=== PATIENT | male | born 1960 | race Caucasian/White ===

== ENCOUNTER 2016-09-15 20:31 | Observation (INO) | payer OTHER ==
[~2016-09-15] VITALS: Ht 180.3 cm; Wt 80.3 kg
--- NOTE | 2016-09-15 20:51 | PHYS DOC ---
Adult General Chief Complaint Chief Complaint: ABDOMINAL PAIN HPI HPI Patient is a 56 year old M who presents with abdominal pain and shortness of breath prior to arrival. Patient states that for the past 3 days he's had these episodes where he gets intense waves of abdominal pain radiating to his back with increased shortness of breath. 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 Patient is a history of Hodgkin's lymphoma where he is undergoing radiation, chemotherapy and surgery. Patient has had a cardiac workup done with no stents or bypass surgery. Pt had an ablation done 4 months ago for A. fib Patient states he does have a history of kidney stones however he is not having a difficult he urinating and there is been no blood in his urine per the patient. In the emergency room the patient is asymptomatic. Patient denies any fevers or chills. Patient denies any nausea/vomiting/ diarrhea. Patient did state about a week ago he had URI symptoms but was not placed on any antibiotics. Pertinent exam findings: Heart was regular rate and rhythm without any murmurs Lungs were clear to auscultation bilaterally without crackles wheezes or rales Abdomen soft nontender bowel sounds heard all 4 quadrants ED course: Patient was seen and examined upon arrival CBC, CMP, lipase, UA, CT angiogram chest abdomen and pelvis and 1 L normal saline bolus was ordered 2315: Patient was reevaluated and updated on lab work and CT findings and is still complaining of significant amount abdominal pain therefore will admit for intractable abdominal pain 2320: Discussed CC/HP/PMH with Dr. Zurita and recommends admit at [facility] only if the lactic acid and LDH were unremarkable to [place] for surgery consult 0015: Discussed CC/HP/PMH with Dr. Zurita and lactic acid and LDH results and even though the LDH is slightly elevated he is comfortable keep the patient at [facility] Pertinent findings: 2048: EKG shows normal sinus rhythm rate of 81 no STEMI Troponin negative LDH 269, lactic acid negative at 1.2 CT scan shows no acute abnormality MDM: After reviewing the chart, CC/HPI/PMH, physical exam, [lab results], [ radiological results], I do not believe the patient has a intra-abdominal emergency warranting emergent surgery. I do not believe the patient has an acute ischemic bowel. On reexamination the patient is having persistent abdominal pain therefore will admit for further evaluation and management. After discussing the case with the hospitalist the patient will remain at [facility] and not transferred to [place] for an emergent surgery consultation. Review of Systems Review of Systems GEN: Denies fevers, chills, sweats HEENT: Denies blurred vision, sore throat CV: Denies chest pain RESP: Shortness of breath GI: Abdominal pain NEURO: Denies confusion, dizziness MSK: Denies weakness, joint pain/swelling Current Medications Current Medications Current Medications Medications (Trade) Dose Ordered Sig/Manish Start Time Stop Time Status Last Admin Dose Admin Sodium Chloride 1,000 ml @ 1,000 mls/hr 1X ONCE 09/15/16 20:45 09/15/16 21:44 UNV Physical Exam Physical Exam GEN.: No apparent distress. Alert and oriented. HEENT: Head is normocephalic, atraumatic NECK: Supple. LUNGS: CTAB. HEART: RRR, S1, S2 present. Peripheral pulses intact ABDOMEN: Soft, nontender. Positive bowel sounds. EXTREMITIES: Without any cyanosis. NEUROLOGIC: Normal speech, normal tone PSYCHIATRIC: Normal affect, normal mood. SKIN: No ulcerations Current Patient Data Lab Results Laboratory Tests Test 09/15/16 20:55 09/15/16 21:10 Urine Collection Type Unknown Urine Color Straw Urine Clarity Clear Urine pH 5.5 Urine Specific [place] <=1.005 Urine Protein Neg Urine Glucose (UA) Neg mg/dL Urine Ketones (Stick) Neg mg/dL Urine Blood Neg Urine Nitrite Neg Urine Bilirubin Neg Urine Urobilinogen Dipstick 0.2 mg/dL Urine Leukocyte Esterase Neg Urine RBC 0 /HPF Urine WBC 1-4 /HPF Urine Squamous Epithelial Cells Few /LPF Urine Bacteria 0 /HPF White Blood Count 9.9 x10^3/uL Red Blood Count 4.06 x10^6/uL Hemoglobin 11.9 g/dL Hematocrit 35.8 % Mean Corpuscular Volume 88 fL Mean Corpuscular Hemoglobin 29 pg Mean Corpuscular Hemoglobin Concent 33 g/dL Red Cell Distribution Width 16.2 % Platelet Count 308 x10^3/uL Neutrophils (%) (Auto) 54 % Lymphocytes (%) (Auto) 28 % Monocytes (%) (Auto) 13 % Eosinophils (%) (Auto) 4 % Basophils (%) (Auto) 1 % Neutrophils # (Auto) 5.4 x10^3uL Lymphocytes # (Auto) 2.8 x10^3/uL Monocytes # (Auto) 1.3 x10^3/uL Eosinophils # (Auto) 0.4 x10^3/uL Basophils # (Auto) 0.1 x10^3/uL Sodium Level 140 mmol/L Potassium Level 3.7 mmol/L Chloride Level 103 mmol/L Carbon Dioxide Level 29 mmol/L Anion Gap 8 Blood Urea Nitrogen 10 mg/dL Creatinine 0.8 mg/dL Estimated GFR (Cockcroft-Gault) 100.4 BUN/Creatinine Ratio 13 Glucose Level 92 mg/dL Lactic Acid Level 1.2 mmol/L Calcium Level 9.0 mg/dL Total Bilirubin 0.5 mg/dL Aspartate Amino Transf (AST/SGOT) 31 U/L Alanine Aminotransferase (ALT/SGPT) 36 U/L Alkaline Phosphatase 145 U/L Lactate Dehydrogenase 269 U/L Troponin I Quantitative < 0.017 ng/mL Total Protein 7.3 g/dL Albumin 3.5 g/dL Albumin/Globulin Ratio 0.9 Lipase 89 U/L Current Medications Medications (Trade) Dose Ordered Sig/Manish Route PRN Reason Start Time Stop Time Status Last Admin Dose Admin Sodium Chloride 1,000 ml @ 1,000 mls/hr 1X ONCE IV 09/15/16 21:00 09/15/16 21:59 DC 09/15/16 21:30 Iohexol (Omnipaque 300 Mg/ml) 75 ml 1X ONCE IV 09/15/16 21:00 09/15/16 21:01 DC 09/15/16 21:08 Info (Do NOT chart on this entry -- for MONITORING) 1 each PRN DAILY PRN MC SEE COMMENTS 09/15/16 21:00 09/17/16 20:59 EKG EKG 2049: EKG shows normal sinus rhythm rate of 81 no STEMI[] Radiology/Procedures Radiology/Procedures CT angio chest abdomen pelvis: COMPARISON: No previous study at [facility]. CHEST CTA: No pulmonary embolism is evident. No thoracic aortic dissection or focal aneurysmal dilatation is seen. The heart size is within normal limits. No pericardial effusion is seen. No enlarged thoracic lymphadenopathy is seen. Enlarged left lobe of the thyroid gland is seen. Mild biapical pleural thickening is seen. No lung consolidation or lung mass is seen. There is a small AVM of the superior segment of the left lower lobe. No pleural effusion or pneumothorax is seen. The proximal bronchial tree is patent. There is a calcified extradural mass of the upper thoracic spine posterior and right side with a thoracic spinal canal meningioma. This measures 15 mm. No osteolytic process is seen. IMPRESSION: No pulmonary embolism. Enlarged left lobe of the thyroid gland. Recommend OUTPATIENT thyroid sonography for further evaluation. Small AVM of the superior segment of the left lower lobe. No lung mass or lung consolidation is seen. 15 mm thoracic spinal canal meningioma of the upper posterior right side of the thoracic spinal canal. ABDOMEN AND PELVIS CTA: The spleen is surgically absent. The liver is unremarkable. The gallbladder is small and contracted. No extra hepatic biliary ductal dilatation is seen. No adrenal mass is evident. Multiple bilateral renal cysts are seen. There is focal scarring of the lower aspect of the right kidney. Nonobstructing stone of the lower pole of the left kidney is seen. There is poor enhancement of the upper pole of the left kidney. 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 Calcified atheromatous disease of the main renal arteries is seen on both sides. No hydronephrosis or hydroureter is seen on either side. No focal aneurysmal dilatation of the abdominal aorta is seen. No enlarged abdominal or pelvic lymphadenopathy is seen. There is circumferential wall thickening of the urinary bladder which is mild. Prostate gland mildly indents the floor of the urinary bladder. No obstructive bowel pattern is seen. A left inguinal hernia seen containing fat. No free intraperitoneal air or free fluid or mesenteric inflammatory change is seen. No osteolytic process is seen. IMPRESSION: The gallbladder is small and contracted which may be due to recent meal. No extra hepatic biliary ductal dilatation is seen. Multiple bilateral renal cysts. Nonobstructing stone of the lower pole of the left kidney. 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 There is focal scarring of the lateral aspect of the lower pole of the right kidney. This could be due to an old renal infarct or chronic pyelonephritis. Mild wall thickening of the urinary bladder which may be due to cystitis or muscle hypertrophy secondary to chronic bladder neck obstruction. Electronically signed by: Dwain Lanza MD (09/15/2016 9:59 PM)[] Course & Med Decision Making Course & Med Decision Making Pertinent Labs and Imaging studies reviewed. (See chart for details) [] Dragon Disclaimer Dragon Disclaimer This chart was dictated in whole or in part using Voice Recognition software in a busy, high-work load, and often noisy Emergency Department environment. It may contain unintended and wholly unrecognized errors or omissions. Departure Departure: Impression: Primary Impression: Intractable abdominal pain Disposition: ADMITTED INPATIENT Admitting Physician: Murali Zurita Condition: STABLE NATALIA HENSON DO Sep 15, 2016 20:51
[2016-09-15] MEDS ORDERED: IOHEXOL 300 MG/ML 75 ML VIAL. IV ONE (21:00)
[2016-09-15] MEDS ORDERED: CONTRAST GIVEN MC PRN (21:00)
[2016-09-15] MEDS ORDERED: IV NORMAL SALINE 1,000ML 1,000 ML IV ONE (21:00)
[2016-09-15 21:23] LABS: BASO # 0.1 x10^3/uL (0.0-0.2); BASO % 1 % (0-3); EOS # 0.4 x10^3/uL (0.0-0.7); EOS % 4 % (0-3); HEMATOCRIT 35.8 % (39.0-53.0); HEMOGLOBIN 11.9 g/dL (13.0-17.5); LYMPH # 2.8 x10^3/uL (1.0-4.8); LYMPH % 28 % (24-48); MEAN CORPUSCULAR HEMOGLOBIN 29 pg (25-35); MEAN CORPUSCULAR HGB CONC 33 g/dL (31-37); MEAN CORPUSCULAR VOLUME 88 fL (79-100); MONO # 1.3 x10^3/uL (0.0-1.1); MONO % 13 % (0-9); NEUT # 5.4 x10^3uL (1.8-7.7); NEUT % 54 % (31-73); PLATELET COUNT 308 x10^3/uL (140-400); RED BLOOD COUNT 4.06 x10^6/uL (4.30-5.70); RED CELL DISTRIBUTION WIDTH 16.2 % (11.5-14.5); WHITE BLOOD COUNT 9.9 x10^3/uL (4.0-11.0)
[2016-09-15 21:34] LABS: ALBUMIN 3.5 g/dL (3.4-5.0); ALBUMIN/GLOBULIN RATIO 0.9 (1.0-1.7); CREATININE 0.8 mg/dL (0.7-1.3); GFR 100.4; POTASSIUM 3.7 mmol/L (3.5-5.1); TOTAL BILIRUBIN 0.5 mg/dL (0.2-1.0); TOTAL PROTEIN 7.3 g/dL (6.4-8.2)
[2016-09-15 21:54] LABS: CLARITY,URINE CLEAR; COLOR,URINE STRAW
[2016-09-15 21:55] LABS: BACTERIA,URINE 0 /HPF (0-FEW); BILIRUBIN,URINE NEG (NEG); GLUCOSE,URINE NEG (NEG); NITRITE,URINE NEG (NEG); RBC,URINE 0 /HPF (0-2); SQUAMOUS EPITHELIAL CELL,UR FEW /LPF; UROBILINOGEN,URINE 0.2 mg/dL (0.2 mg/dL)
--- NOTE | 2016-09-15 22:02 | RAD ---
CTA of the chest and abdomen and pelvis with and without contrast HISTORY: Upper left abdominal pain and left flank pain with shortness of air today. History of spontaneous pneumothorax. History of Hodgkin's disease and kidney stones. Low back pain. TECHNIQUE: Noncontrast axial localizer was performed. After IV infusion of 75 cc of Omnipaque 300, helical CT scanning of the chest and abdomen and pelvis was performed. Multiplanar 2-D MIP reconstructions of the chest and abdomen pelvis were generated. No GI contrast was administered. This may decrease the sensitivity to detect GI tract pathology. PQRS compliance Statement One or more of the following individualized dose reduction techniques were utilized for this study: 1. Automated exposure control 2. Adjustment of the mA and/or kV according to patient size 3. Use of iterative reconstruction technique COMPARISON: No previous study at [facility]. CHEST CTA: No pulmonary embolism is evident. No thoracic aortic dissection or focal aneurysmal dilatation is seen. The heart size is within normal limits. No pericardial effusion is seen. No enlarged thoracic lymphadenopathy is seen. Enlarged left lobe of the thyroid gland is seen. Mild biapical pleural thickening is seen. No lung consolidation or lung mass is seen. There is a small AVM of the superior segment of the left lower lobe. No pleural effusion or pneumothorax is seen. The proximal bronchial tree is patent. There is a calcified extradural mass of the upper thoracic spine posterior and right side with a thoracic spinal canal meningioma. This measures 15 mm. No osteolytic process is seen. IMPRESSION: No pulmonary embolism. Enlarged left lobe of the thyroid gland. Recommend OUTPATIENT thyroid sonography for further evaluation. Small AVM of the superior segment of the left lower lobe. No lung mass or lung consolidation is seen. 15 mm thoracic spinal canal meningioma of the upper posterior right side of the thoracic spinal canal. ABDOMEN AND PELVIS CTA: The spleen is surgically absent. The liver is unremarkable. The gallbladder is small and contracted. No extra hepatic biliary ductal dilatation is seen. No adrenal mass is evident. Multiple bilateral renal cysts are seen. There is focal scarring of the lower aspect of the right kidney. Nonobstructing stone of the lower pole of the left kidney is seen. There is poor enhancement of the upper pole of the left kidney. 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 Calcified atheromatous disease of the main renal arteries is seen on both sides. No hydronephrosis or hydroureter is seen on either side. No focal aneurysmal dilatation of the abdominal aorta is seen. No enlarged abdominal or pelvic lymphadenopathy is seen. There is circumferential wall thickening of the urinary bladder which is mild. Prostate gland mildly indents the floor of the urinary bladder. No obstructive bowel pattern is seen. A left inguinal hernia seen containing fat. No free intraperitoneal air or free fluid or mesenteric inflammatory change is seen. No osteolytic process is seen. IMPRESSION: The gallbladder is small and contracted which may be due to recent meal. No extra hepatic biliary ductal dilatation is seen. Multiple bilateral renal cysts. Nonobstructing stone of the lower pole of the left kidney. 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 There is focal scarring of the lateral aspect of the lower pole of the right kidney. This could be due to an old renal infarct or chronic pyelonephritis. Mild wall thickening of the urinary bladder which may be due to cystitis or muscle hypertrophy secondary to chronic bladder neck obstruction. Electronically signed by: Dwain Lanza MD (09/15/2016 9:59 PM)
[2016-09-16] MEDS ORDERED: IV NORMAL SALINE 1,000ML 1,000 ML IV SCH (00:21)
[2016-09-16] MEDS ORDERED: MORPHINE SULFATE 4 MG/ML DISP.SYRIN. IV PRN (00:30)
[2016-09-16] MEDS ORDERED: ONDANSETRON PF 4 MG/2 ML VIAL. IV PRN (00:30)
[2016-09-16] MEDS: fentaNYL PF 100 MCG/2 ML VIAL IV PRN ×2 (00:50→03:54)
[2016-09-16 01:00] VITALS: BP 178/87
[2016-09-16] MEDS ORDERED: METO100T2 PO (01:50)
[2016-09-16] MEDS ORDERED: LEVO125T5 PO (01:50)
[2016-09-16] MEDS ORDERED: LISI-334 PO (01:50)
--- NOTE | 2016-09-16 01:59 | NUR ---
The patient, JONATHON BOGGS, 56 y/o, M admitted by RICKY MEANS MD, was given written information regarding hospital policies, unit procedures and contact persons. Valuables were checked and left with patient. Patient states he has had this pain for about a week and it has taken his breath away. Will continue to monitor for any changes.
--- NOTE | 2016-09-16 03:17 | ACF ---
Admission Criteria Forms ABDOMINAL PAIN Clinical Indications for Admission to Inpatient Care (Place 'X' for any and all applicable criteria): Admission is indicated for ANY ONE of the following(1)(2)(3)(4)(5): [X]I. Inpatient admission required rather than observation care (Also use Abdominal Pain: Observation Care, as appropriate) because of ANY ONE of the following: [ ]a) Severe pain requiring acute inpatient management [ ]b) Identification of etiology/finding that requires inpatient care (eg, aortic dissection, free air) [ ]c) Absent bowel sounds with complete ileus(6) [ ]d) Suspected toxic megacolon [ ]e) Severe electrolyte abnormalities requiring inpatient care [ ]f) High fever or infection requiring inpatient admission as indicated by ANY ONE of following(7)(8): [ ] i) Appropriate outpatient or observational care antimicrobial treatment unavailable, not effective, or not feasible [ ] ii) Documented bacteremia [ ] iii) Temperature > 104.9 degrees F (oral) [ ] iv) T >103.1 F (oral) or < 96.8 F(rectal) that does not respond to all emergency treatment measures [ ]g) Signs of intestinal obstruction [B] [ ]h) Hemodynamic instability [ ]i) IV fluid to replace significant ongoing losses (greater than 3 L/m2 per day) (12)(13) [ ]j) Percutaneous or open drainage (eg, abscess, biliary tract ) procedures [ ]k) Parenteral nutrition regimen that must be implemented on inpatient basis [X]l) Other condition,treatment or monitoring requiring inpatient admission. [ ]II. Peritoneal signs present [ ]III. Surgery needed that cannot be performed on an ambulatory basis. [ ]IV. Evaluation requires patient to not eat or drink for extended period ( eg, more than 24 hours). [ ]V. Contraindications and/or Inappropriate clinical situations for Observational Care in patients with abdominal pain, when ANY ONE of the following is required: [ ]a) Thorough evaluation is required to prevent catastrophic events due to delays in diagnosing (e.g.Mesenteric ischemia) 1,3 [ ]b) Patient with severe pathology or with chronic symptoms unlikely to improve in the ED stay (3) [ ]. General contraindications and/or Inappropriate clinical situations for Observational Care in patients with abdominal pain, when ANY ONE of the following is required: [ ]a) Prediction of prolongation of LOS based on ANY ONE of the following may be considered as a contraindication for observational care 2, 3, 4, 5, 6, 7, 8, 9, 10, 11 [ ]i) Age > 65 yrs. [ ]ii) Patient arriving by ambulance [ ]iii) Patient with high acuity [ ]iv) Patient requiring vital sign monitoring [ ]v) Patient on IV medication [ ]b) Systolic blood pressures 180mmHg 3,12 [ ]c) Patient with altered mental status including delirium and other alteration of consciousness, (3) [ ]d) Patient whose discharge disposition will be to a intermediate home or rehabilitation home should not be managed in Emergency Department Observation Unit. CMS rule requires 3 days hospital stay before such placement.3,13 [ ]e) Patient with failure to thrive due to broad array of etiologies 3,16,17 [ ]f) Inability to ambulate 3,14 Extended stay beyond goal length of stay may be needed for(2)(3): [ ]a) Persistent abdominal pain with suspected intra-abdominal process [ ]b) Diagnosed condition requiring continued stay (e.g., pancreatitis, complicated diverticulitis) [ ]c) Surgery (e.g., colectomy) The original [facility] content created by [employer] has been revised. The portions of the content which have been revised are identified through the use of italic text or in bold, and [facility] has neither reviewed nor approved the modified material.All other unmodified content is copyright [employer]. Please see references footnoted in the original [facility] edition 2016 Admission Criteria Met?: Yes MANAN WEINBERG Sep 16, 2016 03:17
[2016-09-16 05:28] VITALS: BP 160/84
[2016-09-16] MEDS ORDERED: LEVOTHYROXINE 125 MCG TABLET PO SCH (06:00)
--- NOTE | 2016-09-16 07:46 | NUR ---
During morning rounds, the patient stated that he could not stay until the doctor arrived to see him and that he had to leave as soon as possible. When asked by this nurse if there was anyone who could possibly go check on his dog and patient stated that his dog was at home locked up and there was no one to go let the dog out. The patient stated that both of his children were out of town and he had no one to check on the dog. The patient stated that he wished he could stay but that he felt better and was currently not in any pain. This nurse instructed the patient to come back to the ED if he started to feel bad again and encouraged the patient to begin reintroducing fluids slowly, starting with clear liquids and advancing as tolerated. Dr. Zurita notified of patient's wishes to leave this morning without being seen. AMA form signed by patient and IV discontinued. Patient left the unit via ambulation.
[2016-09-16] MEDS ORDERED: LISINOPRIL 20 MG TABLET PO SCH (09:00)
[2016-09-16] MEDS ORDERED: METOPROLOL TART IMMED RELEASE 50 MG TABLET PO SCH (09:00)
--- NOTE | 2016-09-16 19:06 | EKG ---
[address] [address] Test Date: 2016-09-15 Test Time: 20:51:29 Pat Name: JONATHON BOGGS Department: Room: 113 A Gender: M Vp Purchasing: LIDA : 1960 Requested By: NATALIA HENSNO Order Number: [id number] Reading MD: Jori Wood Measurements Intervals Robertson Rate: 81 P: 64 WI: 138 QRS: -43 QRSD: 106 T: 69 QT: 374 QTc: 435 Interpretive Statements SINUS RHYTHM ABNORMAL LEFT AXIS DEVIATION LEFT ANTERIOR FASCICULAR BLOCK LEFT VENTRICULAR HYPERTROPHY Electronically Signed On 09-19-2016 8:29:49 CDT by Jori Wood
== END 2016-09-16 07:40 | disposition left against medical advice (07) ==
LOC: ER 20:31 → 1 SOUTH 09-16 00:23
PROVIDERS: ADMIT Internal Medicine; ATTEND Internal Medicine
DX: R10.9 Unspecified abdominal pain (principal); I48.91 Unspecified atrial fibrillation; N28.1 Cyst of kidney, acquired; K40.90 Unilateral inguinal hernia, without obstruction or gangrene, not specified as recurrent; N32.0 Bladder-neck obstruction; D32.9 Benign neoplasm of meninges, unspecified; Z87.442 Personal history of urinary calculi; Z85.71 Personal history of Hodgkin lymphoma
CPT/HCPCS: 36415; 71275; 74174; 80053; 81001; 83605; 83615; 83690; 84484; 85027; 93005; 96361; 96374; 96375; 96376; 99285; G0378; J2405; J3010; Q9967; G0379; J7030

== ENCOUNTER 2017-10-02 09:52 | Emergency (ER) | payer OTHER ==
[~2017-10-02] VITALS: Ht 177.8 cm; Wt 75.5 kg
[~2017-10-02 09:52] MED LIST: LEVO125T5 PO; LISI-334 PO; METO100T7 PO
[2017-10-02 10:13] VITALS: BP 144/98
[2017-10-02] MEDS ORDERED: ALPR0.25 PO (10:35)
--- NOTE | 2017-10-02 10:36 | PHYS DOC ---
Past History Past Medical History: A-Fib, Anxiety, Hypertension, Hypothyroid, Kidney Stones , Other Past Surgical History: Other Smoking: Non-smoker Alcohol Use: Occasionally Drug Use: None Adult General Chief Complaint Chief Complaint: ANXIETY/PANIC ATTACK [facility] HPI 57-year-old male patient states he lost his dog one week ago after having his dog for 12 years and since then he has had anxiety and lack of sleep and appetite and lost about 9 pounds. Patient states he had a panic attack today at work shaking all over and palpitation that resolved spontaneously. Patient denies suicidal and homicidal ideation, hallucination, substance abuse, chest pain and shortness of breath. Patient states that the same problem 10 years ago after he lost his father and treated with a short course of Ativan with improvement of his condition. Review of Systems Review of Systems Constitutional: Denies fever or chills , reports anorexia[] Eyes: Denies change in visual acuity, redness, or eye pain [] HENT: Denies nasal congestion or sore throat [] Respiratory: Denies cough or shortness of breath [] Cardiovascular: No additional information not addressed in HPI [] GI: Denies abdominal pain, nausea, vomiting, bloody stools or diarrhea [] : Denies dysuria or hematuria [] Musculoskeletal: Denies back pain or joint pain [] Integument: Denies rash or skin lesions [] Neurologic: Denies headache, focal weakness or sensory changes [] Endocrine: Denies polyuria or polydipsia [] All other systems were reviewed and found to be within normal limits, except as documented in this note. Allergies Allergies Allergies Coded Allergies Type Severity Reaction Last Updated Verified morphine Allergy Intermediate 09/16/16 Yes Physical Exam Physical Exam Constitutional: Well developed, well nourished, mild distress, non-toxic appearance. [] HENT: Normocephalic, atraumatic, oropharynx moist Eyes: PERRLA, EOMI, conjunctiva normal, no discharge. [] Neck: Normal range of motion, no tenderness, supple, no stridor. [] Cardiovascular:Heart rate regular rhythm, no murmur [] Lungs & Thorax: Bilateral breath sounds clear to auscultation [] Extremities: No tenderness, no cyanosis, no clubbing, ROM intact, no edema. [] Neurologic: Alert and oriented X 3, normal motor function, normal sensory function, no focal deficits noted. [] Psychologic: Affect anxious, judgement normal, mood normal. [] Current Patient Data Vital Signs Vital Signs Date Time Temp Pulse Resp B/P (MAP) Pulse Ox O2 Delivery O2 Flow Rate FiO2 10/02/17 10:13 98.2 105 18 98 Room Air EKG EKG [] Radiology/Procedures Radiology/Procedures [] Course & Med Decision Making Course & Med Decision Making Evaluation of patient in ER showed 57-year-old male patient presented to ER because of anxiety and panic attack after loss of his dog. Patient had unremarkable physical exam and I suicidal and homicidal ideation and hallucination. Plan to discharge patient home with prescription of short course of Xanax. Dragon Disclaimer Dragon Disclaimer This electronic medical record was generated, in whole or in part, using a voice recognition dictation system. Departure Departure: Impression: Primary Impression: Panic attack Disposition: HOME, SELF-CARE (At 1033) Condition: STABLE Referrals: PCP,NO (PCP) Patient Instructions: Anxiety and Panic Attacks Additional Instructions: Drink plenty of liquids Follow-up with your primary care physician in 3-5 days Return to ER if not getting better Scripts Alprazolam (XANAX) 0.25 Mg Tablet 0.25 MG PO PRN Q6HRS PRN for ANXIETY / AGITATION, #16 TAB 0 Refills Prov: AYSHA SOLIMAN MD 10/02/17 AYSHA SOLIMAN MD Oct 02, 2017 10:36
== END 2017-10-02 10:44 | disposition home or self-care (01) ==
LOC: ER 09:52
DX: F41.0 Panic disorder [episodic paroxysmal anxiety] (principal); E03.9 Hypothyroidism, unspecified; I10 Essential (primary) hypertension; I48.91 Unspecified atrial fibrillation; Z87.442 Personal history of urinary calculi; Z88.5 Allergy status to narcotic agent
CPT/HCPCS: 99284

== ENCOUNTER 2018-09-04 10:58 | Emergency (ER) | payer OTHER ==
[~2018-09-04] VITALS: Ht 177.8 cm; Wt 75.5 kg
[~2018-09-04 10:58] MED LIST changes: +ALPR0.25 PO
[2018-09-04 11:29] LABS: BASO # 0.1 x10^3/uL (0.0-0.2); BASO % 1 % (0-3); EOS # 0.2 x10^3/uL (0.0-0.7); EOS % 4 % (0-3); HEMATOCRIT 41.6 % (39.0-53.0); HEMOGLOBIN 14.5 g/dL (13.0-17.5); LYMPH % 31 % (24-48); MEAN CORPUSCULAR HEMOGLOBIN 32 pg (25-35); MEAN CORPUSCULAR HGB CONC 35 g/dL (31-37); MEAN CORPUSCULAR VOLUME 93 fL (79-100); MONO # 0.9 x10^3/uL (0.0-1.1); MONO % 14 % (0-9); NEUT # 3.3 x10^3uL (1.8-7.7); NEUT % 51 % (31-73); PLATELET COUNT 352 x10^3/uL (140-400); RED CELL DISTRIBUTION WIDTH 14.3 % (11.5-14.5); WHITE BLOOD COUNT 6.6 x10^3/uL (4.0-11.0)
--- NOTE | 2018-09-04 11:40 | RAD ---
Chest, PA and Lateral: Technique: PA and lateral views of the chest were obtained. History: Chest pain, Hodgkin's lymphoma. Comparison: None. Findings: The heart and pulmonary vasculature appear within normal limits. The lungs are clear. The pleural margins are clear. Calcified lymph nodes identified in the mediastinum and bilateral hilar region. Mild degenerative changes thoracic spine. Impression: 1. Calcified lymph nodes in the mediastinal and bilateral hilar region. 2. Lungs are clear. Electronically signed by: Vidal Barry MD (09/04/2018 11:38 AM) [place] [id number]
[2018-09-04 11:44] LABS: ALBUMIN 3.7 g/dL (3.4-5.0); ALBUMIN/GLOBULIN RATIO 0.9 (1.0-1.7); CALCIUM 9.4 mg/dL (8.5-10.1); CREATININE 0.9 mg/dL (0.7-1.3); POTASSIUM 3.9 mmol/L (3.5-5.1); TOTAL BILIRUBIN 0.6 mg/dL (0.2-1.0); TOTAL PROTEIN 7.7 g/dL (6.4-8.2)
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
[2018-09-04 12:18] VITALS: BP 144/81
--- NOTE | 2018-09-04 16:10 | EKG ---
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
== END 2018-09-04 12:15 | disposition home or self-care (01) ==
LOC: ER 10:58
DX: R00.2 Palpitations (principal); I48.91 Unspecified atrial fibrillation; F41.9 Anxiety disorder, unspecified; I10 Essential (primary) hypertension; E03.9 Hypothyroidism, unspecified; Z87.442 Personal history of urinary calculi; Z85.71 Personal history of Hodgkin lymphoma; Z88.5 Allergy status to narcotic agent
CPT/HCPCS: 36415; 71046; 80053; 84484; 85025; 93005; 99285

== ENCOUNTER 2018-11-02 12:35 | Emergency (ER) | payer OTHER ==
[~2018-11-02] VITALS: Ht 180.3 cm; Wt 75.3 kg
[2018-11-02] MEDS ORDERED: HYDROmorphone PF 1 MG/ML DISP.SYRIN IV ONE (13:15)
[2018-11-02] MEDS ORDERED: ONDANSETRON PF 4 MG/2 ML VIAL. IV ONE (13:15)
--- NOTE | 2018-11-02 13:15 | PHYS DOC ---
Past History Past Medical History: A-Fib, Anxiety, Hypertension, Hypothyroid, Kidney Stones, Other Past Surgical History: Other Smoking: Non-smoker Alcohol Use: Occasionally Drug Use: None Adult General Chief Complaint Chief Complaint: LOWER EXT PAIN HPI HPI 58-year-old male presents with left lower extremity pain. The patient began have intense pain in his left lower leg on the medial side just below the knee. This started today and has increased during the day. He came here from work. He denies any trauma. He is concerned about cellulitis because he had a fever of 101. He took Tylenol prior to arrival. His temperature is normal in the ED. He has tenderness over some of the skin of the lower extremity. He thinks it is mildly erythematous but not distinctly erythematous or hot. The patient normally wears over the calf socks. He has some venous insufficiency at baseline. He has not had a DVT in the past. He denies shortness of breath. He does not recall a cut or injury to the leg, but did have a bug bite on his foot 3 days ago. Review of Systems Review of Systems Constitutional: Fever[] Eyes: Denies change in visual acuity, redness, or eye pain [] HENT: Denies nasal congestion or sore throat [] Respiratory: Denies cough or shortness of breath [] Cardiovascular: No additional information not addressed in HPI [] GI: Denies abdominal pain, nausea, vomiting, bloody stools or diarrhea [] : Denies dysuria or hematuria [] Musculoskeletal: Left lower leg pain[] Integument: Rash left lower leg[] Neurologic: Denies headache, focal weakness or sensory changes [] Endocrine: Denies polyuria or polydipsia [] All other systems were reviewed and found to be within normal limits, except as documented in this note. Current Medications Current Medications Current Medications Medications (Trade) Dose Ordered Sig/Manish Start Time Stop Time Status Last Admin Dose Admin Hydromorphone HCl (Dilaudid) 1 mg 1X ONCE 11/02/18 13:15 11/02/18 13:16 Ondansetron HCl (Zofran) 4 mg 1X ONCE 11/02/18 13:15 11/02/18 13:16 Allergies Allergies Allergies Coded Allergies Type Severity Reaction Last Updated Verified morphine Allergy Intermediate 09/16/16 Yes Physical Exam Physical Exam Constitutional: Well developed, well nourished, no acute distress, non-toxic appearance. [] HENT: Normocephalic, atraumatic, bilateral external ears normal, oropharynx moist, no oral exudates, nose normal. [] Eyes: PERRLA, EOMI, conjunctiva normal, no discharge. [] Neck: Normal range of motion, no tenderness, supple, no stridor. [] Cardiovascular:Heart rate regular rhythm, no murmur [] Lungs & Thorax: Bilateral breath sounds clear to auscultation [] Abdomen: Bowel sounds normal, soft, no tenderness, no masses, no pulsatile masses. [] Skin: Tenderness and mild erythema over a 5 x 5 cm area of the left lower extremity skin medial side, just below the knee.[] Back: No tenderness, no CVA tenderness. [] Extremities: No tenderness, no cyanosis, no clubbing, ROM intact. Left calf diameters greater than right.[] Neurologic: Alert and oriented X 3, normal motor function, normal sensory function, no focal deficits noted. [] Psychologic: Affect normal, judgement normal, mood normal. [] EKG EKG [] Radiology/Procedures Radiology/Procedures [] Impressions: Left lower extremity venous ultrasound, : History: Left leg pain and swelling Duplex evaluation including grayscale, color flow and spectral Doppler analysis was performed. The femoral and popliteal veins show no filling defects to suggest DVT. The visualized calf veins are unremarkable. IMPRESSION: There is no sonographic evidence of deep vein thrombosis in the left lower extremity Electronically signed by: Martina Larsen MD (11/02/2018 2:54 PM) [facility] DICTATED AND SIGNED BY: MARTINA LARSEN MD DATE: 11/02/18 8065 CC: JAYNA BOSWELL DO; PCP,NO ~ Course & Med Decision Making Course & Med Decision Making Pertinent Labs and Imaging studies reviewed. (See chart for details) The patient's labs are unremarkable. He has not had a fever in the ED. His ultrasound is negative for DVT. I will treat him for cellulitis. We will give 1 g Rocephin in the ED. I will discharge him with Keflex. He is stable for discharge at this time. [] Dragon Disclaimer Dragon Disclaimer This electronic medical record was generated, in whole or in part, using a voice recognition dictation system. Departure Departure: Impression: Primary Impression: Cellulitis of left lower extremity Disposition: HOME, SELF-CARE Condition: STABLE Referrals: PCP,NO (PCP) Patient Instructions: Cellulitis, [id number] Scripts Hydrocodone Bit/Acetaminophen ([place] 5-325 TABLET) 1 Each Tablet 1 TAB PO PRN Q6HRS PRN for PAIN, #10 TAB 0 Refills Prov: JAYNA BOSWELL DO 11/02/18 Clonidine Hcl (CLONIDINE HCL) 0.2 Mg Tablet 1 TAB PO TID for hypertension for 30 Days, #90 TAB 0 Refills Prov: JAYNA BOSWELL DO 11/02/18 Cephalexin (KEFLEX) 500 Mg Capsule 1 CAP PO TID for cellulitis for 7 Days, #21 CAP Prov: JAYNA BOSWELL DO 11/02/18 JAYNA BOSWELL DO Nov 02, 2018 13:15
[2018-11-02] MEDS ORDERED: IV NORMAL SALINE 1,000ML 1,000 ML IV ONE (13:45)
[2018-11-02 14:21] LABS: BASO % 0 % (0-3); EOS % 0 % (0-3); HEMATOCRIT 40.7 % (39.0-53.0); HEMOGLOBIN 13.6 g/dL (13.0-17.5); LYMPH # 1.2 x10^3/uL (1.0-4.8); LYMPH % 13 % (24-48); MEAN CORPUSCULAR HEMOGLOBIN 33 pg (25-35); MEAN CORPUSCULAR HGB CONC 33 g/dL (31-37); MEAN CORPUSCULAR VOLUME 97 fL (79-100); MONO # 0.8 x10^3/uL (0.0-1.1); MONO % 9 % (0-9); NEUT # 7.1 x10^3uL (1.8-7.7); NEUT % 78 % (31-73); PLATELET COUNT 301 x10^3/uL (140-400); RED BLOOD COUNT 4.19 x10^6/uL (4.30-5.70); RED CELL DISTRIBUTION WIDTH 14.2 % (11.5-14.5); WHITE BLOOD COUNT 9.1 x10^3/uL (4.0-11.0)
[2018-11-02 14:32] LABS: ALBUMIN 3.5 g/dL (3.4-5.0); ALBUMIN/GLOBULIN RATIO 0.9 (1.0-1.7); CALCIUM 9.1 mg/dL (8.5-10.1); CREATININE 0.9 mg/dL (0.7-1.3); POTASSIUM 4.3 mmol/L (3.5-5.1); TOTAL BILIRUBIN 0.7 mg/dL (0.2-1.0); TOTAL PROTEIN 7.2 g/dL (6.4-8.2)
--- NOTE | 2018-11-02 14:57 | RAD ---
Left lower extremity venous ultrasound, : History: Left leg pain and swelling Duplex evaluation including grayscale, color flow and spectral Doppler analysis was performed. The femoral and popliteal veins show no filling defects to suggest DVT. The visualized calf veins are unremarkable. IMPRESSION: There is no sonographic evidence of deep vein thrombosis in the left lower extremity Electronically signed by: Magan Estrada MD (11/02/2018 2:54 PM) [facility]
[2018-11-02] MEDS ORDERED: CEPH-264 PO (15:15)
[2018-11-02] MEDS ORDERED: CLON-276 PO (15:21)
[2018-11-02] MEDS ORDERED: HYDR-3165 PO (15:21)
[2018-11-02] MEDS ORDERED: IV NORMAL SALINE 50ML 50 ML ONE (15:31)
[2018-11-02] MEDS ORDERED: cefTRIAXone SODIUM 1 GM VIAL ONE (15:31)
[2018-11-02 16:35] VITALS: BP 164/88
== END 2018-11-02 16:35 | disposition home or self-care (01) ==
LOC: ER 12:35
DX: L03.116 Cellulitis of left lower limb (principal); I48.91 Unspecified atrial fibrillation; I10 Essential (primary) hypertension; E03.9 Hypothyroidism, unspecified; Z87.442 Personal history of urinary calculi; Z88.5 Allergy status to narcotic agent
CPT/HCPCS: 36415; 80053; 85025; 87040; 93971; 96365; 96375; 99285; J0696; J1170; J2405; J7030

== ENCOUNTER 2018-11-04 01:14 | Emergency (ER) | payer OTHER ==
[~2018-11-04] VITALS: Ht 180.3 cm; Wt 75.5 kg
[~2018-11-04 01:14] MED LIST changes: +CEPH-264 PO; +CLON-276 PO; +HYDR-3165 PO
--- NOTE | 2018-11-04 01:17 | ED.ADGEN ---
Past History Past Medical History: A-Fib, Anxiety, Hypertension, Hypothyroid, Kidney Stones, Other Past Surgical History: Other Past Surgical History Lap for Hodgkin lymphoma evaluation Smoking: Non-smoker Alcohol Use: Occasionally Drug Use: None Adult General Chief Complaint Chief Complaint ".. I got this skin rash..."... " I was in here on the 11/02.. after I got swelling in this Lt. leg.. I got a bug bite on the foot about 3 days before... they said I did not have any clot in the leg.. and said I probably had cellulitis.. I got a shot of Rocephin.. and Keflex... to take every day.... but they said if it was not getting better.. to come back in.. 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 and I was up to go to work... and I think the leg is more warm and swollen... so I came in...".." I had a fever at home.. I took some tylenol...." HPI HPI Patient is a 58 year old male who presents with above hx and complaints of increase edema, ecchymosis of the bug bite on Lt. foot, erythema of Lt leg and warmth. Patient seen on 11/02/2018 and at that visit he had no DVT. Patient was diagnosed with cellulitis and started on Keflex and received a dosage of Ro cephin. Patient denies any history immunosuppression. Does have remote history of Hodgkin's lymphoma treated surgery and with chemotherapy in 1991. No recent travel. 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 It has been excess of 5 years since last tetanus. No history coagulopathy. No history of trauma other than the insect bite on left foot. There is no striations or adenopathy in left leg. Review of Systems Review of Systems Constitutional: Subjective history of fever Eyes: Denies change in visual acuity, redness, or eye pain [] HENT: Denies nasal congestion or sore throat [] Respiratory: Denies cough or shortness of breath [] Cardiovascular: No additional information not addressed in HPI [] GI: Denies abdominal pain, nausea, vomiting, bloody stools or diarrhea [] : Denies dysuria or hematuria [] Musculoskeletal: Denies back pain or joint pain [] Integument: Complaints of a cellulitic rash and bug bite on left foot Neurologic: Denies headache, focal weakness or sensory changes [] Endocrine: Denies polyuria or polydipsia [] All other systems were reviewed and found to be within normal limits, except as documented in this note. Family History Family History Noncontributory Current Medications Current Medications Current Medications Medications (Trade) Dose Ordered Sig/Manish Start Time Stop Time Status Last Admin Dose Admin Ceftriaxone Sodium (Rocephin Im) 1 gm 1X ONCE 11/04/18 02:00 11/04/18 02:01 DC 11/04/18 01:59 1 GM Ceftriaxone Sodium (Rocephin) 1 gm STK-MED ONCE 11/04/18 01:52 11/04/18 01:53 DC Diphtheria/ Tetanus/Acell Pertussis (Boostrix) 0.5 ml ONCE ONCE 11/04/18 02:00 11/04/18 02:01 DC 11/04/18 02:01 0.5 ML Tetanus/ Diphtheria Toxoids Adsorbed (Tenivac Vial) 0.5 ml ONCE ONCE 11/04/18 01:45 11/04/18 01:59 DC Trimethoprim/ Sulfamethoxazole (Bactrim Ds) 1 tab 1X ONCE 11/04/18 02:00 11/04/18 02:01 DC 11/04/18 01:59 1 TAB See nursing for home meds Allergies Allergies Allergies Coded Allergies Type Severity Reaction Last Updated Verified morphine Allergy Intermediate 09/16/16 Yes Physical Exam Physical Exam Constitutional: Well developed, well nourished, no acute distress, non-toxic appearance. [] HENT: Normocephalic, atraumatic, bilateral external ears normal, oropharynx moist, no oral exudates, nose normal. [] Eyes: PERRLA, EOMI, conjunctiva normal, no discharge. [] Neck: Normal range of motion, no tenderness, supple, no stridor. [] Cardiovascular:Heart rate regular rhythm, no murmur [] Lungs & Thorax: Bilateral breath sounds clear to auscultation [] Abdomen: Bowel sounds normal, soft, no tenderness, no masses, no pulsatile masses. [] Old surgery scars Skin: Warm, dry, no erythema, left leg cellulitis as per history of present illness Back: No tenderness, no CVA tenderness. [] Extremities: No tenderness, no cyanosis, no clubbing, ROM intact, left foot and anterior cameron edema. [] Neurologic: Alert and oriented X 3, normal motor function, normal sensory function, no focal deficits noted. [] Psychologic: Affect anxious,, judgement normal, mood normal. [] Current Patient Data Vital Signs Vital Signs Date Time Temp Pulse Resp B/P (MAP) Pulse Ox O2 Delivery O2 Flow Rate FiO2 11/04/18 02:27 82 20 144/86 (105) 98 Room Air 11/04/18 01:20 98.3 EKG EKG [] Radiology/Procedures Radiology/Procedures [] Course & Med Decision Making Course & Med Decision Making Pertinent Labs and Imaging studies reviewed. (See chart for details) Patient to elevate leg when possible. Tylenol and ibuprofen for discomfort and fever. Patient to do warm salt water or Epsom salts water soaks to left foot. Patient continue the Keflex but add Bactrim DS twice a day. If no improvement in the next 3 days. Will need reexam and repeat labs. Patient return if any concerns. [] Final Impression Final Impression 1. Insect Bite Foot 2. Cellulitis 3. Hx Hodgkin lymphoma in 1991-[] Dragon Disclaimer Dragon Disclaimer This electronic medical record was generated, in whole or in part, using a voice recognition dictation system. Discharge Summary Visit Information Final Diagnosis Problems Medical Problems: (1) Cellulitis Status: Acute Brief Hospital Course Allergies Allergies Coded Allergies Type Severity Reaction Last Updated Verified morphine Allergy Intermediate 09/16/16 Yes Vital Signs Vital Signs Date Time Temp Pulse Resp B/P (MAP) Pulse Ox O2 Delivery O2 Flow Rate FiO2 11/04/18 02:27 82 20 144/86 (105) 98 Room Air 11/04/18 01:20 98.3 Brief Hospital Course Mr. Tate is a 58 old male who presented with re-check of Lt. leg and foot cellulitis Discharge Information Condition at Discharge: Stable Disposition/Orders: D/C to Home Dischare Medications Current Medications Tetanus/ Diphtheria Toxoids Adsorbed (Tenivac Vial) 0.5 ml ONCE ONCE VAX IM ; Start 11/04/18 at 01:45; Stop 11/04/18 at 01:59; Status DC Ceftriaxone Sodium (Rocephin Im) 1 gm 1X ONCE IM Last administered on 11/04/18at 01:59; Admin Dose 1 GM; Start 11/04/18 at 02:00; Stop 11/04/18 at 02:01; Status DC Trimethoprim/ Sulfamethoxazole (Bactrim Ds) 1 tab 1X ONCE PO Last administered on 11/04/18at 01:59; Admin Dose 1 TAB; Start 11/04/18 at 02:00; Stop 11/04/18 at 02:01; Status DC Diphtheria/ Tetanus/Acell Pertussis (Boostrix) 0.5 ml ONCE ONCE VAX IM Last administered on 11/04/18at 02:01; Admin Dose 0.5 ML; Start 11/04/18 at 02:00; Stop 11/04/18 at 02:01; Status DC Ceftriaxone Sodium (Rocephin) 1 gm STK-MED ONCE .ROUTE ; Start 11/04/18 at 01:52; Stop 11/04/18 at 01:53; Status DC Active Scripts Active Bactrim Ds Tablet (Sulfamethoxazole/Trimethoprim) 1 Each Tablet 1 Tab PO BID [place] 5-325 Tablet (Hydrocodone Bit/Acetaminophen) 1 Each Tablet 1 Tab PO PRN Q6HRS PRN Clonidine Hcl 0.2 Mg Tablet 1 Tab PO TID 30 Days Keflex (Cephalexin) 500 Mg Capsule 1 Cap PO TID 7 Days Xanax (Alprazolam) 0.25 Mg Tablet 0.25 Mg PO PRN Q6HRS PRN Reported Levothyroxine Sodium 125 Mcg Tablet 125 Mcg PO DAILY06 Lisinopril 20 Mg Tablet 20 Mg PO DAILY Metoprolol Tartrate 100 Mg Tablet 100 Mg PO TID Nataly Disclaimer This chart was dictated in whole or in part using Voice Recognition software in a busy, high-work load, and often noisy Emergency Department environment. It may contain unintended and wholly unrecognized errors or omissions. JEOVANY JARVIS MD Nov 04, 2018 01:17
[2018-11-04] MEDS ORDERED: SULF1TAB24 PO (01:41)
[2018-11-04] MEDS ORDERED: TETANUS AND DIPHTHERIA TOX/PF 0.5 ML VIAL. VAX IM ONE (01:45)
[2018-11-04] MEDS ORDERED: cefTRIAXone SODIUM 1 GM VIAL ONE (01:52)
[2018-11-04] MEDS ORDERED: DIPHTH,PERTUSS(ACELL),TET TOX 0.5 ML DISP.SYRIN. VAX IM ONE (02:00)
[2018-11-04] MEDS ORDERED: cefTRIAXone IM 1 GM VIAL IM ONE (02:00)
[2018-11-04] MEDS ORDERED: SMZ/TMP 800/160MG TABLET. PO ONE (02:00)
[2018-11-04 02:27] VITALS: BP 144/86
== END 2018-11-04 02:27 | disposition home or self-care (01) ==
LOC: ER 01:14
DX: S90.862A Insect bite (nonvenomous), left foot, initial encounter (principal); L03.116 Cellulitis of left lower limb; I48.91 Unspecified atrial fibrillation; I10 Essential (primary) hypertension; E03.9 Hypothyroidism, unspecified; Z85.71 Personal history of Hodgkin lymphoma; Z87.442 Personal history of urinary calculi; Z88.5 Allergy status to narcotic agent; W57.XXXA Bitten or stung by nonvenomous insect and other nonvenomous arthropods, initial encounter; Y93.89 Activity, other specified; Y92.89 Other specified places as the place of occurrence of the external cause; Y99.8 Other external cause status
CPT/HCPCS: 90471; 90715; 96372; 99284; J0696

== ENCOUNTER 2018-11-04 13:46 | Emergency (ER) | payer OTHER ==
[~2018-11-04] VITALS: Ht 180.3 cm; Wt 75.5 kg
[~2018-11-04 13:46] MED LIST changes: +SULF1TAB24 PO
--- NOTE | 2018-11-04 14:22 | PHYS DOC ---
Past History Past Medical History: A-Fib, Anxiety, Cancer, Hypertension, Hypothyroid, Kidney Stones, Other Past Surgical History: Appendectomy, Cancer Surgery, Spleenectomy, Other Smoking: Non-smoker Alcohol Use: Occasionally Drug Use: None Adult General Chief Complaint Chief Complaint: LOWER EXTREMITY EDEMA HPI HPI 58-year-old male returns to the emergency room with left lower extremity pain. The patient was seen by myself 2 days in the ER. He was also seen last night by my colleague. These are all for the same complaint. See previous notes for more details. He comes back today because he feels like there are some hardening nodules in the middle of the area of concern. He has not started the Bactrim that my colleague prescribed. His pain is about the same. He still has Sturgeon left that I prescribe couple days ago. He has not like taking these because it makes him itchy. He is just worried that the infection can spread and cause serious problems. He has not had a fever since his last visit to the ER. Review of Systems Review of Systems Constitutional: Denies fever or chills [] Eyes: Denies change in visual acuity, redness, or eye pain [] HENT: Denies nasal congestion or sore throat [] Respiratory: Denies cough or shortness of breath [] Cardiovascular: No additional information not addressed in HPI [] GI: Denies abdominal pain, nausea, vomiting, bloody stools or diarrhea [] : Denies dysuria or hematuria [] Musculoskeletal: Left lower extremity pain[] Integument: Denies rash or skin lesions [] Neurologic: Denies headache, focal weakness or sensory changes [] Endocrine: Denies polyuria or polydipsia [] All other systems were reviewed and found to be within normal limits, except as documented in this note. Allergies Allergies Allergies Coded Allergies Type Severity Reaction Last Updated Verified morphine Allergy Intermediate 09/16/16 Yes Physical Exam Physical Exam Constitutional: Well developed, well nourished, no acute distress, non-toxic appearance. [] HENT: Normocephalic, atraumatic, bilateral external ears normal, oropharynx moist, no oral exudates, nose normal. [] Eyes: PERRLA, EOMI, conjunctiva normal, no discharge. [] Neck: Normal range of motion, no tenderness, supple, no stridor. [] Cardiovascular:Heart rate regular rhythm, no murmur [] Lungs & Thorax: Bilateral breath sounds clear to auscultation [] Abdomen: Bowel sounds normal, soft, no tenderness, no masses, no pulsatile masses. [] Skin: Erythematous, warm area of skin on the left lower leg medial side. This area is 8 cm x 8 cm. There are palpable nodules within the space. These do not appear or feel like abscesses.[] Back: No tenderness, no CVA tenderness. [] Extremities: No tenderness, no cyanosis, no clubbing, ROM intact, no edema. [] Neurologic: Alert and oriented X 3, normal motor function, normal sensory function, no focal deficits noted. [] Psychologic: Affect normal, judgement normal, mood normal. [] Current Patient Data Vital Signs Vital Signs Date Time Temp Pulse Resp B/P (MAP) Pulse Ox O2 Delivery O2 Flow Rate FiO2 11/04/18 13:56 98.2 99 18 96 Room Air EKG EKG [] Radiology/Procedures Radiology/Procedures [] Course & Med Decision Making Course & Med Decision Making Pertinent Labs and Imaging studies reviewed. (See chart for details) Since this is my second examination of the patient, this now looks much more like superficial thrombophlebitis. The erythema and warmth could be from simple inflammation, but could also be infected thrombophlebitis. I believe the most prudent course is for him to continue the Keflex and start the Bactrim as prescribed. I have also told him he should make an appointment with his PCP for later this week to discuss anticoagulation if his condition is not improving. I explained him that we do not manage anticoagulants out of the emergency room. He is stable for discharge at this time. [] Dragon Disclaimer Dragon Disclaimer This electronic medical record was generated, in whole or in part, using a voice recognition dictation system. Departure Departure: Impression: Primary Impression: Superficial thrombophlebitis Disposition: HOME, SELF-CARE Condition: STABLE Referrals: PCPJUAN (PCP) Additional Instructions: Please make appointment with her primary care physician to discuss anticoagulation such as fondaparinux or rivaroxaban. Problem Qualifiers Primary Impression: Superficial thrombophlebitis Superficial thrombophlebitis-Involved body area: lower extremity Laterality: left Qualified Codes: I80.02 - Phlebitis and thrombophlebitis of superficial vessels of left lower extremity JAYNA BOSWELL DO Nov 04, 2018 14:22
[2018-11-04 14:30] VITALS: BP 119/67
== END 2018-11-04 14:30 | disposition home or self-care (01) ==
LOC: ER 13:46
DX: I80.02 Phlebitis and thrombophlebitis of superficial vessels of left lower extremity (principal); I48.91 Unspecified atrial fibrillation; I10 Essential (primary) hypertension; E03.9 Hypothyroidism, unspecified; Z87.442 Personal history of urinary calculi; Z88.5 Allergy status to narcotic agent
CPT/HCPCS: 99281; 99283

== ENCOUNTER 2019-10-29 13:11 | Emergency (ER) | payer OTHER ==
[~2019-10-29] VITALS: Ht 180.3 cm; Wt 77.2 kg
[2019-10-29] MEDS ORDERED: chlordiazePOXIDE HCL 25 MG CAPSULE PO ONE (13:30)
[2019-10-29] MEDS ORDERED: THIAMINE 100 MG TABLET. PO ONE (13:30)
[2019-10-29] MEDS ORDERED: IV NORMAL SALINE 1,000ML 1,000 ML IV ONE (13:30)
[2019-10-29] MEDS ORDERED: ONDANSETRON PF 4 MG/2 ML VIAL. IVP ONE (13:30)
--- NOTE | 2019-10-29 13:33 | PHYS DOC ---
Past History Past Medical History: A-Fib, Anxiety, Cancer, Hypertension, Hypothyroid, Kidney Stones, Other Past Surgical History: Appendectomy, Cancer Surgery, Spleenectomy, Other Smoking: Non-smoker Alcohol Use: Occasionally Drug Use: None General Adult EDM: Chief Complaint: WITHDRAWAL HPI: HPI: 59-year-old male significant history of hypertension, atrial fibrillation with ablation, and Hodgkin's lymphoma, alcohol abuse, who presents for evaluation of alcohol withdrawal symptoms. He reports several hours of increasing tremulousness, nausea. Drinks 0.5 to 1 pint of whiskey with a sixpack of beer daily. Last drink of alcohol was about 3 PM yesterday afternoon. No prior history of alcohol withdrawal seizures. He states he was able to successfully stop drinking about a year ago following a Librium taper. Review of Systems: Review of Systems: Gen: No fever, chills. Eyes: No blurred vision, diplopia. ENT: No nasal congestion, sore throat. CV: No CP, palpitations. Resp. No SOB, cough. GI: No abd pain, vomiting. Reports nausea. : No dysuria, hematuria. Neuro: No ATKINS, dizziness, weakness. Reports tremulousness. MSK: No myalgia, arthralgia, back pain. Skin: No acute rash or lesion. Heart Score: Risk Factors: Risk Factors: DM, Current or recent (<one month) smoker, HTN, HLP, family history of CAD, obesity. Risk Scores: Score 0 - 3: 2.5% MACE over next 6 weeks - Discharge Home Score 4 - 6: 20.3% MACE over next 6 weeks - Admit for Clinical Observation Score 7 - 10: 72.7% MACE over next 6 weeks - Early Invasive Strategies Allergies: Allergies: Allergies Coded Allergies Type Severity Reaction Last Updated Verified morphine Allergy Intermediate 10/29/19 Yes Physical Exam: PE: Gen: NAD. Well nourished. Head: NC/AT. Eyes: No scleral icterus. No conjunctival injection. PERRLA 4 mm. ENT: MMM. Posterior OP clear. Neck: Supple. CV: Borderline tachycardia. Peripheral pulses intact. Resp: CTAB. No increased work of breathing. Abd: Soft. NT. ND. MSK: No peripheral cyanosis. No edema. Neuro: Awake and alert. Mild tremulousness. No asterixis. Skin. Warm. Dry. Psych: Appropriate mood & affect. Current Patient Data: Labs: Laboratory Tests Test 10/29/19 13:42 White Blood Count 6.9 x10^3/uL (4.0-11.0) Red Blood Count 4.17 x10^6/uL (4.30-5.70) L Hemoglobin 13.5 g/dL (13.0-17.5) Hematocrit 40.1 % (39.0-53.0) Mean Corpuscular Volume 96 fL (79-100) Mean Corpuscular Hemoglobin 32 pg (25-35) Mean Corpuscular Hemoglobin Concent 34 g/dL (31-37) Red Cell Distribution Width 14.0 % (11.5-14.5) Platelet Count 510 x10^3/uL (140-400) H Neutrophils (%) (Auto) 61 % (31-73) Lymphocytes (%) (Auto) 23 % (24-48) L Monocytes (%) (Auto) 12 % (0-9) H Eosinophils (%) (Auto) 2 % (0-3) Basophils (%) (Auto) 2 % (0-3) Neutrophils # (Auto) 4.2 x10^3uL (1.8-7.7) Lymphocytes # (Auto) 1.6 x10^3/uL (1.0-4.8) Monocytes # (Auto) 0.8 x10^3/uL (0.0-1.1) Eosinophils # (Auto) 0.1 x10^3/uL (0.0-0.7) Basophils # (Auto) 0.1 x10^3/uL (0.0-0.2) Sodium Level 138 mmol/L (136-145) Potassium Level 4.1 mmol/L (3.5-5.1) Chloride Level 101 mmol/L (98-107) Carbon Dioxide Level 27 mmol/L (21-32) Anion Gap 10 (6-14) Blood Urea Nitrogen 8 mg/dL (8-26) Creatinine 1.1 mg/dL (0.7-1.3) Estimated GFR (Cockcroft-Gault) 68.8 BUN/Creatinine Ratio 7 (6-20) Glucose Level 146 mg/dL (70-99) H Calcium Level 9.2 mg/dL (8.5-10.1) Magnesium Level 1.7 mg/dL (1.8-2.4) L Total Bilirubin 0.6 mg/dL (0.2-1.0) Aspartate Amino Transferase (AST) 57 U/L (15-37) H Alanine Aminotransferase (ALT) 50 U/L (16-63) Alkaline Phosphatase 148 U/L (46-116) H Total Protein 7.6 g/dL (6.4-8.2) Albumin 3.6 g/dL (3.4-5.0) Albumin/Globulin Ratio 0.9 (1.0-1.7) L Ethyl Alcohol Level < 10 mg/dL (0-10) EKG: EKG: [] Radiology/Procedures: Radiology/Procedures: [] Course & Med Decision Making: Course & Med Decision Making Pertinent Labs and Imaging studies reviewed. (See chart for details) In summary, 59-year-old male who presents for evaluation of mild alcohol withdrawal symptoms. No prior alcohol withdrawal seizures. Last drink was nearly 24 hours ago. The patient has mild tachycardia, mild hypertension, and mild tremulousness. Basic lab was otherwise unremarkable. Undetectable alcohol level. Received Ativan 1 mg IV as well as Librium 50 mg orally with improvement in symptomatology. No longer tachycardic. Tremulousness improved. He remains well-appearing nontoxic. I feel that he would be a good candidate for Librium taper as an outpatient. Return precautions given. Иванon Disclaimer: Nataly Disclaimer: This electronic medical record was generated, in whole or in part, using a voice recognition dictation system. Departure Departure: Impression: Primary Impression: Alcohol abuse Disposition: 01 HOME/RESIDENCE PRIOR TO ADM Condition: STABLE Referrals: PCP,NO (PCP) Patient Instructions: Alcohol Withdrawal Scripts Ondansetron (ONDANSETRON ODT) 4 Mg Tab.rapdis 1 TAB PO PRN Q6-8HRS for nausea, #16 TAB Prov: TOBI BUI DO 10/29/19 Chlordiazepoxide Hcl (CHLORDIAZEPOXIDE HCL) 25 Mg Capsule 25 MG PO Q6HRS for alcohol withdrawal, #20 CAP Take 1 tab PO QID x2 days, then take 1 tab PO TID x2 days, then take 1 tab PO BID x2 days, then take 1 tab PO daily x2 days, then stop. Prov: TOBI BUI H DO 10/29/19 Justification of Admission: Justification of Admission: Justification of Admission Dx: N/A TOBI BUI DO Oct 29, 2019 13:33
[2019-10-29 13:57] LABS: BASO # 0.1 x10^3/uL (0.0-0.2); BASO % 2 % (0-3); EOS # 0.1 x10^3/uL (0.0-0.7); EOS % 2 % (0-3); HEMATOCRIT 40.1 % (39.0-53.0); HEMOGLOBIN 13.5 g/dL (13.0-17.5); LYMPH # 1.6 x10^3/uL (1.0-4.8); LYMPH % 23 % (24-48); MEAN CORPUSCULAR HEMOGLOBIN 32 pg (25-35); MEAN CORPUSCULAR HGB CONC 34 g/dL (31-37); MEAN CORPUSCULAR VOLUME 96 fL (79-100); MONO # 0.8 x10^3/uL (0.0-1.1); MONO % 12 % (0-9); NEUT # 4.2 x10^3uL (1.8-7.7); NEUT % 61 % (31-73); PLATELET COUNT 510 x10^3/uL (140-400); RED BLOOD COUNT 4.17 x10^6/uL (4.30-5.70); WHITE BLOOD COUNT 6.9 x10^3/uL (4.0-11.0)
[2019-10-29 14:05] LABS: CALCIUM 9.2 mg/dL (8.5-10.1); CREATININE 1.1 mg/dL (0.7-1.3); GFR 68.8; POTASSIUM 4.1 mmol/L (3.5-5.1)
[2019-10-29 14:11] LABS: ALBUMIN 3.6 g/dL (3.4-5.0); ALBUMIN/GLOBULIN RATIO 0.9 (1.0-1.7); MAGNESIUM 1.7 mg/dL (1.8-2.4); TOTAL BILIRUBIN 0.6 mg/dL (0.2-1.0); TOTAL PROTEIN 7.6 g/dL (6.4-8.2)
[2019-10-29] MEDS ORDERED: CHLO25CA9 PO (14:28)
[2019-10-29] MEDS ORDERED: ONDA4TAB12 PO (14:28)
[2019-10-29 14:35] VITALS: BP 150/92
== END 2019-10-29 14:35 | disposition home or self-care (01) ==
LOC: ER 13:11
DX: F10.10 Alcohol abuse, uncomplicated (principal); I48.91 Unspecified atrial fibrillation; I10 Essential (primary) hypertension; F41.9 Anxiety disorder, unspecified; E03.9 Hypothyroidism, unspecified; Z85.71 Personal history of Hodgkin lymphoma; Z87.442 Personal history of urinary calculi; Z88.5 Allergy status to narcotic agent; Y90.0 Blood alcohol level of less than 20 mg/100 ml
CPT/HCPCS: 36415; 80053; 83735; 85025; 96374; 96375; 99284; G0480; J2060; J2405; J7030

== ENCOUNTER 2020-05-31 10:50 | Inpatient (IN) | payer OTHER ==
[~2020-05-31] VITALS: Ht 180.3 cm; Wt 72.5 kg
[~2020-05-31 10:50] MED LIST changes: +CHLO25CA9 PO; -LISI-334 PO; +LISI20TA18 PO; +ONDA4TAB12 PO
--- NOTE | 2020-05-31 11:22 | RAD ---
XR CHEST 1V History: Reason: chest pain / Spl. Instructions: / History: Comparison: September 04, 2018 Findings: No consolidation or pleural effusion. Normal heart size. No pneumothorax. Prior median sternotomy. Calcified mediastinal and hilar lymph nodes, unchanged. Impression: 1. No acute cardiopulmonary process. Electronically signed by: Sina Pretty DO (05/31/2020 11:19 AM) [id number]
[2020-05-31 11:24] LABS: BASO # 0.1 x10^3/uL (0.0-0.2); BASO % 1 % (0-3); EOS # 0.1 x10^3/uL (0.0-0.7); EOS % 1 % (0-3); HEMOGLOBIN 14.4 g/dL (13.0-17.5); LYMPH # 1.4 x10^3/uL (1.0-4.8); LYMPH % 15 % (24-48); MEAN CORPUSCULAR HEMOGLOBIN 33 pg (25-35); MEAN CORPUSCULAR HGB CONC 34 g/dL (31-37); MEAN CORPUSCULAR VOLUME 98 fL (79-100); MONO # 0.8 x10^3/uL (0.0-1.1); MONO % 9 % (0-9); NEUT # 7.1 x10^3uL (1.8-7.7); NEUT % 75 % (31-73); PLATELET COUNT 270 x10^3/uL (140-400); RED BLOOD COUNT 4.41 x10^6/uL (4.30-5.70); RED CELL DISTRIBUTION WIDTH 14.4 % (11.5-14.5); WHITE BLOOD COUNT 9.4 x10^3/uL (4.0-11.0)
[2020-05-31 11:39] LABS: CALCIUM 9.2 mg/dL (8.5-10.1); CREATININE 1.2 mg/dL (0.7-1.3); GFR 62.2; POTASSIUM 3.3 mmol/L (3.5-5.1)
[2020-05-31 11:44] LABS: ALBUMIN 3.2 g/dL (3.4-5.0); ALBUMIN/GLOBULIN RATIO 0.8 (1.0-1.7); MAGNESIUM 1.4 mg/dL (1.8-2.4); TOTAL BILIRUBIN 0.9 mg/dL (0.2-1.0); TOTAL PROTEIN 7.1 g/dL (6.4-8.2)
[2020-05-31] MEDS ORDERED: IV NORMAL SALINE 1,000ML 1,000 ML IV ONE (12:15)
--- NOTE | 2020-05-31 12:18 | PHYS DOC ---
Past History Past Medical History: A-Fib, Alcoholism, Anxiety, Cancer, Hypertension, Hypothyroid, Kidney Stones, Other Additional Past Medical Histor: Hodgekin's x2 Past Surgical History: Appendectomy, Cancer Surgery, Spleenectomy, Other Additional Past Surgical Histo: pericardial stripping; tail of pancreas removed; cardiac ablation Smoking: Non-smoker Alcohol Use: Heavy Drug Use: None Adult General Chief Complaint Chief Complaint: CHEST PAIN HPI HPI Patient is a 59m recurrence of respiratory which includes atrial fibrillation, hypertension, alcohol dependence now presents emergency department complaint of new onset of chest pain. Patient states that 2 days ago he decided he wanted to detox himself from alcohol. Patient states that he has been attempting to taper off alcohol and his last ring was 2 days ago. States that he typically drinks a sixpack and a pint of whiskey a day. States that he been doing well until approximately 1 hour prior to arrival when he noted new onset of substernal chest pain and pressure. Denies any radiation. Denies any aggravating or alleviating factors. No known associated nausea, vomiting, fever, chills, cou gh, dizziness. Patient also notes he has been increasingly shaky since it started. Denies any abdominal pain, audible or tactile hallucinations Review of Systems Review of Systems Constitutional: Denies fever or chills [] Eyes: Denies change in visual acuity, redness, or eye pain [] HENT: Denies nasal congestion or sore throat [] Respiratory: Denies cough or shortness of breath [] Cardiovascular: No additional information not addressed in HPI [] GI: Denies abdominal pain, nausea, vomiting, bloody stools or diarrhea [] : Denies dysuria or hematuria [] Musculoskeletal: Denies back pain or joint pain [] Integument: Denies rash or skin lesions [] Neurologic: Denies headache, focal weakness or sensory changes [] Endocrine: Denies polyuria or polydipsia [] All other systems were reviewed and found to be within normal limits, except as documented in this note. Allergies Allergies Allergies Coded Allergies Type Severity Reaction Last Updated Verified morphine Allergy Intermediate 05/31/20 Yes Physical Exam Physical Exam Constitutional: Well developed, well nourished, no acute distress, non-toxic appearance. [] HENT: Normocephalic, atraumatic, bilateral external ears normal, oropharynx moist, no oral exudates, nose normal. [] Eyes: PERRLA, EOMI, conjunctiva normal, no discharge. [] Neck: Normal range of motion, no tenderness, supple, no stridor. [] Cardiovascular:Heart rate regular rhythm, no murmur [] Lungs & Thorax: Bilateral breath sounds clear to auscultation [] Abdomen: Bowel sounds normal, soft, no tenderness, no masses, no pulsatile masses. [] Skin: Warm, dry, no erythema, no rash. [] Back: No tenderness, no CVA tenderness. [] Extremities: No tenderness, no cyanosis, no clubbing, ROM intact, no edema. [] Neurologic: Alert and oriented X 3, normal motor function, normal sensory function, no focal deficits noted. [] Psychologic: Affect normal, judgement normal, mood normal. [] Current Patient Data Vital Signs Vital Signs Date Time Temp Pulse Resp B/P (MAP) Pulse Ox O2 Delivery O2 Flow Rate FiO2 05/31/20 12:12 96 18 110/56 (74) 95 Room Air 05/31/20 11:01 96.6 Lab Results Laboratory Tests Test 05/31/20 11:05 White Blood Count 9.4 x10^3/uL (4.0-11.0) Red Blood Count 4.41 x10^6/uL (4.30-5.70) Hemoglobin 14.4 g/dL (13.0-17.5) Hematocrit 43.0 % (39.0-53.0) Mean Corpuscular Volume 98 fL (79-100) Mean Corpuscular Hemoglobin 33 pg (25-35) Mean Corpuscular Hemoglobin Concent 34 g/dL (31-37) Red Cell Distribution Width 14.4 % (11.5-14.5) Platelet Count 270 x10^3/uL (140-400) Neutrophils (%) (Auto) 75 % (31-73) H Lymphocytes (%) (Auto) 15 % (24-48) L Monocytes (%) (Auto) 9 % (0-9) Eosinophils (%) (Auto) 1 % (0-3) Basophils (%) (Auto) 1 % (0-3) Neutrophils # (Auto) 7.1 x10^3uL (1.8-7.7) Lymphocytes # (Auto) 1.4 x10^3/uL (1.0-4.8) Monocytes # (Auto) 0.8 x10^3/uL (0.0-1.1) Eosinophils # (Auto) 0.1 x10^3/uL (0.0-0.7) Basophils # (Auto) 0.1 x10^3/uL (0.0-0.2) Sodium Level 137 mmol/L (136-145) Potassium Level 3.3 mmol/L (3.5-5.1) L Chloride Level 97 mmol/L (98-107) L Carbon Dioxide Level 25 mmol/L (21-32) Anion Gap 15 (6-14) H Blood Urea Nitrogen 10 mg/dL (8-26) Creatinine 1.2 mg/dL (0.7-1.3) Estimated GFR (Cockcroft-Gault) 62.2 BUN/Creatinine Ratio 8 (6-20) Glucose Level 182 mg/dL (70-99) H Calcium Level 9.2 mg/dL (8.5-10.1) Magnesium Level 1.4 mg/dL (1.8-2.4) L Total Bilirubin 0.9 mg/dL (0.2-1.0) Aspartate Amino Transferase (AST) 40 U/L (15-37) H Alanine Aminotransferase (ALT) 37 U/L (16-63) Alkaline Phosphatase 201 U/L (46-116) H Troponin I Quantitative < 0.017 ng/mL (0-0.055) Total Protein 7.1 g/dL (6.4-8.2) Albumin 3.2 g/dL (3.4-5.0) L Albumin/Globulin Ratio 0.8 (1.0-1.7) L Lipase 114 U/L (73-393) EKG EKG [] Radiology/Procedures Radiology/Procedures [] Heart Score Risk Factors: Risk Factors: DM, Current or recent (<one month) smoker, HTN, HLP, family history of CAD, obesity. Risk Scores: Risk Factors: DM, Current or recent (<one month) smoker, HTN, HLP, family history of CAD, obesity. Course & Med Decision Making Course & Med Decision Making Pertinent Labs and Imaging studies reviewed. (See chart for details) 59M presenting the emergency department new onset of left anterior chest pain however the patient's recent detox does raise concern for an acute alcohol withdrawal syndrome. Also patient is known to have atrial fibrillation. Will obtain a full ACS work-up treat patient symptomatically and provide IV fluids at this time Dragon Disclaimer Dragon Disclaimer This electronic medical record was generated, in whole or in part, using a voice recognition dictation system. Departure Departure: Referrals: PCP,JUAN (PCP) ADRIANNA HINES MD May 31, 2020 12:18
--- NOTE | 2020-05-31 12:35 | EKG ---
[address] [address] Test Date: 2020-05-31 Test Time: 10:56:58 Pat Name: JONATHON BOGGS Department: Room: Gender: M Cushion Padder: AMPARO : 1960 Requested By: ADRIANNA HINES Order Number: [id number] Reading MD: Measurements Intervals [place] Rate: 108 P: 90 KS: 134 QRS: -43 QRSD: 100 T: 84 QT: 336 QTc: 454 Interpretive Statements SINUS TACHYCARDIA ABNORMAL LEFT AXIS DEVIATION LEFT ANTERIOR FASCICULAR BLOCK CONSIDER LEFT VENTRICULAR HYPERTROPHY T ABNORMALITY IN HIGH LATERAL LEADS ABNORMAL ECG RI6.02 Compared to ECG 05/31/2020 10:55:20 No significant changes
[2020-05-31] MEDS ORDERED: LIDO:MAALOX 1:1 20 ML SINGLE DOSE. PO ONE (13:30)
[2020-05-31] MEDS ORDERED: ONDANSETRON PF 4 MG/2 ML VIAL. IVP PRN (13:30)
[2020-05-31] MEDS ORDERED: MORPHINE SULFATE 4 MG/ML DISP.SYRIN. IVP PRN (13:30)
[2020-05-31] MEDS ORDERED: ASPIRIN CHEWABLE 81 MG TABLET. ONE (13:50)
[2020-05-31] MEDS ORDERED: ASPIRIN CHEWABLE 81 MG TABLET. PO ONE (14:00)
[2020-05-31 14:42] LABS: BILIRUBIN,URINE NEG (NEG); CLARITY,URINE CLEAR; COLOR,URINE YELLOW; GLUCOSE,URINE NEG (NEG); NITRITE,URINE NEG (NEG); UROBILINOGEN,URINE 0.2 mg/dL (0.2 mg/dL)
--- NOTE | 2020-05-31 14:52 | NUR ---
NURSING NOTE ADMIT PT ADMIT TO ROOM 111 FOR CHEST PAIN RULE OUT, DETOX. PT STATED TO ED THAT HE STOPPED DRINKING 36 HOURS AGO, STARTED HAVING TREMORS TODAY AND TOOK A FEW SHOTS OF ALCOHOL AT HOME. PT REPORTS CLONIDINE 0.2MG AT HOME, NO OTHER HOME MEDS. PT SETTLED IN ROOM. NEIDA YA.
[2020-05-31 14:57] VITALS: BP 134/87
[2020-05-31 15:09] LABS: BACTERIA,URINE 0 /HPF (0-FEW); RBC,URINE 0 /HPF (0-2); WBC,URINE RARE /HPF (0-4)
[2020-05-31] MEDS ORDERED: HALOPERIDOL LACT 5 MG/ML VIAL. IM PRN (15:30)
[2020-05-31] MEDS ORDERED: diphenhydrAMINE 50 MG/ML VIAL IVP PRN (15:30)
--- NOTE | 2020-05-31 15:34 | NUR ---
NURSING NOTE ORDERS RECEIVED FROM DR MIRAMONTES FOR ALCOHOL WITHDRAWAL PROTOCOL, IV PROTONIX 40MG DAILY, KDUR 20 BID, MAG SULF 1G IV X1 DOSE AND ALSO FOR GI COCKTAIL IF NEEDED. NEIDA YA.
[2020-05-31] MEDS ORDERED: LIDO:MAALOX 1:1 20 ML SINGLE DOSE. PO PRN (15:45)
[2020-05-31] MEDS ORDERED: MAGNESIUM SULFATE 1GM 100 ML IV ONE (16:00)
--- NOTE | 2020-05-31 18:20 | NUR ---
NURSING NOTE PT VOMITED WHILE EATING STATES "MY FOOD GETS STUCK SOMETIMES, I DO THIS EVERY ONCE IN A WHILE". PT DENIES NEED FOR NAUSEA MEDICATION. STATES HE IS NOT SICK, JUST HAPPENS. NEIDA YA.
[2020-05-31 19:10] VITALS: BP 129/69
[2020-05-31] MEDS: POTASSIUM CHLORIDE 20 MEQ TABLET.ER. PO SCH (20:54)
[2020-06-01 03:01] VITALS: BP 152/87
[2020-06-01 05:44] VITALS: BP 157/85
[2020-06-01 06:38] LABS: CALCIUM 8.5 mg/dL (8.5-10.1); CREATININE 0.8 mg/dL (0.7-1.3); GFR 99.3; POTASSIUM 3.9 mmol/L (3.5-5.1)
[2020-06-01 07:26] LABS: BASO # 0.1 x10^3/uL (0.0-0.2); BASO % 1 % (0-3); EOS # 0.2 x10^3/uL (0.0-0.7); EOS % 2 % (0-3); HEMATOCRIT 41.5 % (39.0-53.0); LYMPH # 1.4 x10^3/uL (1.0-4.8); LYMPH % 17 % (24-48); MEAN CORPUSCULAR HEMOGLOBIN 33 pg (25-35); MEAN CORPUSCULAR HGB CONC 34 g/dL (31-37); MEAN CORPUSCULAR VOLUME 98 fL (79-100); MONO # 0.9 x10^3/uL (0.0-1.1); MONO % 11 % (0-9); NEUT # 5.4 x10^3uL (1.8-7.7); NEUT % 69 % (31-73); PLATELET COUNT 265 x10^3/uL (140-400); RED BLOOD COUNT 4.25 x10^6/uL (4.30-5.70); RED CELL DISTRIBUTION WIDTH 13.9 % (11.5-14.5); WHITE BLOOD COUNT 7.9 x10^3/uL (4.0-11.0)
[2020-06-01] MEDS: PANTOPRAZOLE IV 40 MG VIAL. IVP SCH (07:54)
[2020-06-01] MEDS: POTASSIUM CHLORIDE 20 MEQ TABLET.ER. PO SCH ×2 (07:54→20:33)
--- NOTE | 2020-06-01 09:58 | HP ---
ADMIT DATE: 05/31/2020 ATTENDING PHYSICIAN: Dr. Miramontes. CHIEF COMPLAINT: Chest pain. HISTORY OF PRESENT ILLNESS: Patient is a 59-year-old gentleman who has no local physician. He presented to the ED with new onset of chest pain, centralized, substernal in nature. He is a chronic alcoholic. He drinks to excess, and 2 days ago, he decided to stop drinking. He is having anxiety disorder. He has had a recent fall and a closed head injury several months ago. The first set of cardiac enzymes was negative. He had impending delirium tremens. He was admitted then with alcohol withdrawal, chest pain, most likely gastritis and rule out coronary ischemia. PAST MEDICAL HISTORY: Very interesting. He is chronic alcoholism, depression, anxiety, and he is not currently getting meds, essential hypertension, hypothyroidism, kidney stones, 2 episodes of Hodgkin's disease. PAST SURGICAL HISTORY: Appendectomy, splenectomy pericardial stripping and tail of the pancreas removed, cardiac ablation. SOCIAL HISTORY: He is a nonsmoker. He is a heavy drinker as noted. FAMILY HISTORY: Mom of complications of lung cancer at age 62. Father of pancreatic cancer at age 80. He is single. He has a daughter that is an adult. 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 REVIEW OF SYSTEMS: Significant for the depression. He had been on Prozac before. No local physician. He drinks to excess. He does not smoke. He has had some weight loss, poor appetite, lots of depression symptoms and trouble sleeping. All other systems reviewed and determined to be negative. PHYSICAL EXAMINATION: GENERAL: When I saw him, this is a pleasant gentleman with a fairly normal affect. INITIAL VITAL SIGNS: Showed a blood pressure 134/87, pulse is 105 and regular, ranging between 70 and 100, temperature 97.9 degrees Fahrenheit, oxygen saturation 97% on room air. HEENT: Head is without trauma. Pupils are reactive. Sclerae nonicteric. Oropharynx is clear. NECK: Supple, no bruits. LUNGS: Clear. CARDIOVASCULAR: Showed regular heart tones. No gallops. ABDOMEN: Scaphoid, soft, nontender, no guarding or rebound tenderness. EXTREMITIES: Show no cyanosis or edema. NEUROLOGIC: Focally intact. He is much calmer when I saw him. There are no impending seizures. He has a mild tremor. SKIN: Warm and dry. PERTINENT LABORATORY STUDIES: His hemoglobin on admission was 14.4 g/dL with a white count of 9400. Sodium was 137, potassium 3.3 mEq, creatinine is 1.2 mg/dL, nonfasting blood sugar 182. First set of cardiac enzymes were negative for coronary ischemia. Chest x-ray on admission was clear without any acute cardiopulmonary process. ASSESSMENT: 1. A 59-year-old gentleman with chest pain due to alcoholic gastritis. 2. Chronic alcoholism. 3. Alcohol withdrawal with impending delirium tremens. 4. History of Hodgkin's lymphoma, treated. 5. Noncompliance of meds. 6. Underlying depression with anxiety. 7. Essential hypertension, without treatment. PLAN: 1. Admit to the inpatient unit. 2. Ativan per [facility] protocol. 3. Diet as tolerated. 4. Potassium supplementation. 5. Proton pump inhibitor. 6. Long discussion regarding reasons for drinking, depression and anxiety. He states that given his medical background, he has a counselor that he plans on seeing. In addition, he will try to find a primary care doctor. The goal is to get him stabilized and then discharge with Ativan. As I said, he is improving and not have any further impending delirium tremens. YADIRA MIRAMONTES MD DR: GUILLAUME/berto JOB#: [id number] / [id number]
[2020-06-01 10:24] VITALS: BP 120/69
[2020-06-01 14:45] VITALS: BP 147/85
[2020-06-01 19:35] VITALS: BP 124/73
[2020-06-02 00:54] VITALS: BP 151/95
[2020-06-02 05:25] VITALS: BP 119/70
[2020-06-02 06:32] LABS: CALCIUM 8.6 mg/dL (8.5-10.1); CREATININE 0.8 mg/dL (0.7-1.3); GFR 99.3; POTASSIUM 4.1 mmol/L (3.5-5.1)
[2020-06-02] MEDS: POTASSIUM CHLORIDE 20 MEQ TABLET.ER. PO SCH ×2 (07:56→20:17)
[2020-06-02] MEDS: PANTOPRAZOLE IV 40 MG VIAL. IVP SCH (07:56)
[2020-06-02 10:45] VITALS: BP 115/70
[2020-06-02 14:45] VITALS: BP 129/75
[2020-06-02] MEDS ORDERED: chlordiazePOXIDE HCL 25 MG CAPSULE PO PRN ×2 (16:45)
--- NOTE | 2020-06-02 17:01 | RAD ---
EXAMINATION: CT HEAD/BRAIN WO (CT HEAD WITHOUT IV CONTRAST) CLINICAL HISTORY: Multiple falls with headache and diplopia and chronic alcoholism TECHNIQUE: Serial axial images without IV contrast were obtained from the vertex to the foramen magnu m. CT Dose Reduction Employed: One or more of the following individualized dose reduction techniques wer e utilized for this examination: 1. Automated exposure control 2. Adjustment of the mA and/or kV ac cording to patient size 3. Use of iterative reconstruction technique. COMPARISON: CT head and C-spine 01/15/2017 FINDINGS: Acute Change: No evidence of an acute infarct or other acute parenchymal process. Hemorrhage: No evidence of acute intracranial hemorrhage. Mass Lesion/Mass Effect: No evidence of intracranial mass or extraaxial fluid collection. No signific ant mass effect. Chronic Change: Scattered patchy foci of hypoattenuation in the supratentorial white matter, nonspeci fic but likely represents mild microvascular ischemia. Atherosclerotic calcification of the anterior and posterior circulation. Parenchyma: No significant volume loss. Parenchyma otherwise within normal limits for age. Ventricles: Ventricles within normal limits for age. Paranasal Sinuses and Skull Base: Visualized paranasal sinuses clear. Visualized skull base and soft tissues unremarkable. IMPRESSION: No evidence of acute intracranial abnormality or significant interval change. Electronically signed by: Homero Barclay DO (06/02/2020 4:59 PM) [id number]
--- NOTE | 2020-06-02 17:36 | PN ---
DATE: 06/02/2020 SUBJECTIVE: The patient is resting, slightly propped up in bed, in no apparent respiratory distress. He has no further episode of chest pain. He has 3 sets of cardiac enzymes that ruled out myocardial infarction. It transpired that he was diagnosed with Hodgkin lymphoma in 1979 and 1989 and has received radiation that resulted in esophageal stricture that required dilated multiple times, last one was about 9 months ago. His main complaint is that he apparently has hit his head multiple times and the last time was after [place] and shortly after that he has had according to him developed headache, diplopia and impaired cognition. 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 PHYSICAL EXAMINATION: GENERAL: When I examined him this afternoon, he looked well and was clearly in no apparent respiratory distress. No pallor, jaundice, cyanosis or thyromegaly. No jugular venous distention or limb edema. VITAL SIGNS: His heart rate was 103, blood pressure was 120/75, temperature was 97.9, respiratory rate was 16, and oxygen saturation was 93%. HEAD, EYES, EARS, NOSE AND THROAT: Showed normocephalic, atraumatic. NECK: Supple. HEART: Normal first and second heart sounds. No gallop, rub or murmur. CHEST: Clear to auscultation. No crepitation or rhonchi. ABDOMEN: Scaphoid, soft, nontender. NEUROLOGIC: He was awake, alert, responding appropriately. All cranial nerves are intact. He moves extremities without difficulty. His intake was 720, no output was recorded. LABORATORY DATA: His lab work as of this morning showed a serum sodium 137, potassium 4.1, chloride 102, bicarbonate 27, anion gap of 8, BUN 8, creatinine 0.8, estimated GFR was 99 mL per minute. His glucose 146, calcium was 8.6, magnesium was 1.7. His white cell count was 7900; hemoglobin 14; hematocrit 41; MCV 98 and platelet count 265,000. Urinalysis is essentially unremarkable. ASSESSMENT: This is a 59-year-old male patient who basically came in complaining of chest pain. He has 3 sets of cardiac enzymes that ruled out myocardial infarction. He also concerned about cognitive abilities. 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 He drinks about a pint of Fireball and 12 packs of beer. He attempted to stop drinking for about 36 hours only to develop severe shaking, for which he took 2 shots of Fireball for him to be able to drive and came here to the Emergency Room for further evaluation. He apparently has multiple falls, last one was after [place], during which he developed headache, diplopia and impaired cognition and poor memory. PLAN: My plan is to arrange for him to have a CT scan of the head without contrast, consult Dr. Lynne and Dr. Rosas and decide on further management accordingly. RICKY MEANS MD DR: ALIDA/berto JOB#: [id number] / [id number]
[2020-06-02 20:44] VITALS: BP 133/70
[2020-06-02 23:20] VITALS: BP 151/86
[2020-06-03 05:34] VITALS: BP 136/77
[2020-06-03] MEDS: PANTOPRAZOLE IV 40 MG VIAL. IVP SCH (07:39)
[2020-06-03] MEDS: POTASSIUM CHLORIDE 20 MEQ TABLET.ER. PO SCH (07:39)
[2020-06-03] MEDS ORDERED: FOLIC ACID 1 MG TABLET PO SCH (09:00)
[2020-06-03] MEDS ORDERED: THIAMINE 100 MG TABLET. PO SCH (09:00)
[2020-06-03] MEDS ORDERED: MULTIVITAMIN with MINERAL TABLET. PO SCH (09:00)
[2020-06-03 11:05] VITALS: BP 112/66
[2020-06-03] MEDS ORDERED: LORA-254 PO (15:03)
--- NOTE | 2020-06-03 15:32 | NUR ---
PATIENT IS DISCHARGED HOME, DISCHARGED INSTRUCTIONS REVIEWED, PT VERBALIZED UNDERSTANDING. PATIENT LEFT ROOM VIA AMBULATION ACCOMP BY SELF. PATIENT WAS ADVISED NOT TO DRIVE TODAY, PATIENT STATED HE HAS HIS CAR HERE ON THE PARKING LOT BUT HE WILL ONLY GET HIS BELONGINGS FROM THE CAR AND HAS SOMEONE ON THE WAY TO PICK HIM UP.
== END 2020-06-03 15:35 | disposition home or self-care (01) | DRG 392 ==
LOC: ER 10:50 → 1 SOUTH 13:31 → OBSVTOIN 06-01 11:24
PROVIDERS: ADMIT Hospitalist; ATTEND Hospitalist
DX: K29.20 Alcoholic gastritis without bleeding (principal); F10.239 Alcohol dependence with withdrawal, unspecified; E03.9 Hypothyroidism, unspecified; F41.8 Other specified anxiety disorders; H53.2 Diplopia; I10 Essential (primary) hypertension; I48.91 Unspecified atrial fibrillation; R29.6 Repeated falls; Z80.0 Family history of malignant neoplasm of digestive organs; Z80.1 Family history of malignant neoplasm of trachea, bronchus and lung; Z85.71 Personal history of Hodgkin lymphoma; Z87.442 Personal history of urinary calculi; Z90.49 Acquired absence of other specified parts of digestive tract; Z90.81 Acquired absence of spleen; Z91.14 Patient's other noncompliance with medication regimen; Z92.3 Personal history of irradiation; F32.9 Major depressive disorder, single episode, unspecified; Z88.8 Allergy status to other drugs, medicaments and biological substances
CPT/HCPCS: 36415; 70450; 71045; 80048; 80053; 81001; 83690; 83735; 84484; 85025; 93005; 96361; 96374; C9113; G0378; G0379; J2060; J3475; 99285-25; J7030

== ENCOUNTER 2020-09-12 20:52 | Emergency (ER) | payer OTHER ==
[~2020-09-12] VITALS: Ht 180.3 cm; Wt 74.1 kg
[~2020-09-12 20:52] MED LIST changes: +LORA-254 PO
[2020-09-12 21:51] VITALS: BP 178/105
[2020-09-12] MEDS ORDERED: DIAZ10TA4 PO (22:42)
--- NOTE | 2020-09-12 22:42 | PHYS DOC ---
Past History Past Medical History: Alcoholism, Anxiety Additional Past Medical Histor: Hodgekin's x2 Past Surgical History: No Surgical History Additional Past Surgical Histo: pericardial stripping; tail of pancreas removed; cardiac ablation Smoking: Non-smoker Alcohol Use: Heavy Drug Use: None Adult General Chief Complaint Chief Complaint: WITHDRAWAL HPI HPI Patient is a 60-year-old male who presents to the emergency department requesting information on help for alcohol cessation/rehab. States he is a heavy drinker and did drink today but is trying to cut back and quit and want some help. States he is tried before but he gets the shakes. States his primary care did do a Librium taper once which helped but he went back to drinking. Patient came in wondering if he could have something similar. Denies any other medical complaints at this time. Review of Systems Review of Systems Review of systems otherwise unremarkable except noted in HPI Current Medications Current Medications Current Medications Medications (Trade) Dose Ordered Sig/Manish Start Time Stop Time Status Last Admin Dose Admin Diazepam (Valium) 10 mg 1X ONCE 09/12/20 23:00 09/12/20 23:01 Allergies Allergies Allergies Coded Allergies Type Severity Reaction Last Updated Verified morphine Allergy Severe SOA, HIVES/RASH 05/31/20 Yes Physical Exam Physical Exam Constitutional: Well developed, well nourished, no acute distress, non-toxic appearance. [] HENT: Normocephalic, atraumatic, bilateral external ears normal, oropharynx moist, no oral exudates, nose normal. [] Eyes: conjunctiva normal, no discharge. [] Neck: Normal range of motion, no tenderness, supple, no stridor. [] Cardiovascular:Heart rate regular rhythm, no murmur [] Lungs & Thorax: Bilateral breath sounds clear to auscultation [] Abdomen: Bowel sounds normal, soft, no tenderness, no masses, no pulsatile masses. [] Skin: Warm, dry, no erythema, no rash. [] Back: No tenderness, Extremities: No tenderness, no cyanosis, no clubbing, ROM intact, no edema. [] Neurologic: Alert and oriented X 3, no focal deficits noted. [] Psychologic: Affect normal, judgement normal, mood normal. [] Current Patient Data Vital Signs Vital Signs Date Time Temp Pulse Resp B/P (MAP) Pulse Ox O2 Delivery O2 Flow Rate FiO2 09/12/20 21:51 97.2 112 18 178/105 (129) 97 Room Air EKG EKG [] Radiology/Procedures Radiology/Procedures [] Heart Score C/O Chest Pain: No Risk Factors: Risk Factors: DM, Current or recent (<one month) smoker, HTN, HLP, family history of CAD, obesity. Risk Scores: Risk Factors: DM, Current or recent (<one month) smoker, HTN, HLP, family history of CAD, obesity. Course & Med Decision Making Course & Med Decision Making Patient is a 60-year-old male who presents requesting information for alcohol withdrawal and possible benzodiazepine taper Vital signs not concerning. Physical exam noted above. Had long discussion with patient on available resources. PAT hospice team lead contacted and given contact information for [facility]. Patient started on diazepam in the ED. Gave a short-term diazepam taper for home. Had long discussion with patient about while using this he cannot drink. Advised to call primary care physician in the morning. Advised to call his social services aide as well in the morning to update on ED visit. Advised to show up at [facility] for treatment as discussed. Patient very grateful, verbalized understanding and agreed with plan of discharge. Dragon Disclaimer Dragon Disclaimer This electronic medical record was generated, in whole or in part, using a voice recognition dictation system. Departure Departure: Impression: Primary Impression: Alcohol dependence with withdrawal Disposition: 02 SHORT TERM HOSPITAL Condition: GOOD Referrals: PCP,JUAN (PCP) JIMBO PARNELL MD Patient Instructions: Alcohol Intoxication, Alcohol Problems, Alcohol Withdrawal Additional Instructions: Please read all the attached information very carefully. Please cease drinking alcohol as discussed. Please use diazepam as discussed over the next couple of days. Please call your primary care physician, your social services aide and [facility] in the morning to discuss your ED visit, desire to cease drinking alcohol and set up appointments. Please come back to the emergency department immediately with new or concerning symptoms as discussed. Scripts Diazepam (DIAZEPAM) 10 Mg Tablet 10 MG PO BID for etoh withdrawl for 3 Days, #6 TAB Prov: JACOB COLEMAN MD 09/12/20 JACOB COLEMAN MD Sep 12, 2020 22:42
[2020-09-12] MEDS ORDERED: diazePAM 5 MG TABLET. PO ONE (23:00)
--- NOTE | 2020-09-13 07:12 | EKG ---
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
== END 2020-09-12 22:45 | disposition short-term general hospital (02) ==
LOC: ER 20:52
DX: F10.239 Alcohol dependence with withdrawal, unspecified (principal); F41.9 Anxiety disorder, unspecified; Z88.5 Allergy status to narcotic agent; Y90.9 Presence of alcohol in blood, level not specified
CPT/HCPCS: 99285

== ENCOUNTER 2021-05-16 21:35 | Emergency (ER) | payer BC, OTHER ==
[~2021-05-16] VITALS: Ht 180.3 cm; Wt 75.5 kg
[2021-05-16 21:35] VITALS: BP 150/87
[~2021-05-16 21:35] MED LIST changes: +DIAZ10TA4 PO
--- NOTE | 2021-05-16 21:40 | PHYS DOC ---
Past History Past Medical History: Alcoholism, Anxiety, Arthritis Additional Past Medical Histor: Hodgekin's x2 Past Surgical History: No Surgical History, Pacemaker Additional Past Surgical Histo: pericardial stripping; tail of pancreas removed; cardiac ablation Smoking: Non-smoker Alcohol Use: Heavy Drug Use: None General Adult HPI: HPI: ".I am try to quit again.. I getting shakes.. I don't want to get a seizure..." Patient is a 60 year old male who presents with above hx and complaints withdrawal from alcohol symptoms. Patient states he has been alcohol 4 times lasting up to 3 years at a time. Patient states when he does attempt acute or taper down he develops tonic-clonic seizures. No recent travel. No sick ill contacts. Last drink 5 yesterday. Patient denies any trauma. Patient denies o ther issues. Patient denies other drug use. Patient does not smoke. No history of immunosuppression. Patient does have a history of anxiety disorder. Has had history of previous closed head injury. Patient has history of prior GERD and gastritis. Does have a history of depression hypothyroidism kidney stones x2 and 2 episodes of Hodgkin's lymphoma. Patient has undergone adrienne endectomy, splenectomy and pericardial stripping as well as most of the tail of the pancreas. He has had cardiac ablation treatments. Review of Systems: Review of Systems: Constitutional: Denies fever or chills Eyes: Denies change in visual acuity HENT: Denies nasal congestion or sore throat Respiratory: Denies cough or shortness of breath Cardiovascular: Denies chest pain or edema GI: Denies abdominal pain, nausea, vomiting, bloody stools or diarrhea : Denies dysuria Musculoskeletal: Denies back pain or joint pain Integument: Denies rash Neurologic: Complains of generalized weakness and tremors Endocrine: Denies polyuria or polydipsia Lymphatic: Denies swollen glands Psychiatric: Denies depression or anxiety Family History: Family History: Noncontributory presentation-mother of lung cancer complications age 62. 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 [] HENT: Normocephalic, atraumatic, bilateral external ears normal, oropharynx moist, no oral exudates, nose normal. [] Eyes: PERRLA, EOMI, conjunctiva normal, no discharge. [] Neck: Normal range of motion, no tenderness, supple, no stridor. [] Cardiovascular:Heart rate regular rhythm, no murmur [] Lungs & Thorax: Bilateral breath sounds clear to auscultation [] Abdomen: Bowel sounds normal, soft, no tenderness, no masses, no pulsatile masses. [] Skin: Warm, dry, no erythema, no rash. [] Back: No tenderness, no CVA tenderness. [] Extremities: No tenderness, no cyanosis, no clubbing, ROM intact, no edema. [] Neurologic: Alert and oriented X 3, normal motor function, normal sensory function, no focal deficits noted. [] Psychologic: Affect normal, judgement normal, mood normal. [] EKG: EKG: My interpretation EKG shows a sinus rhythm 92 bpm. There is some left axis deviation as well as a left fascicular block. There is some elevation in T waves no contralateral changes. No findings acute STEMI of contralateral changes. Time of this EKG is 2200 hrs. [] Radiology/Procedures: Radiology/Procedures: [][place] [address] IMAGING REPORT Signed PATIENT: JONATHON BOGGS ACCOUNT: [id number] : 1960 LOCATION: ER AGE: 60 SEX: M EXAM STATUS: REG ER ORD. PHYSICIAN: JEOVANY JARVIS MD REASON: Alcohol withdrawal, dyspnea PROCEDURE: PORTABLE CHEST 1V Exam: Chest one view INDICATION: Alcohol withdrawal, dyspnea TECHNIQUE: Frontal view of the chest Comparisons: 05/31/2020 FINDINGS: The cardiomediastinal silhouette and pulmonary vessels are within normal limits. Bandlike opacity at the right infrahilar region. No pleural effusion. IMPRESSION: Right infrahilar bandlike airspace disease may relate to atelectasis or developing consolidative process. Electronically signed by: Pillo Fish MD (05/16/2021 10:47 PM) [facility] DICTATED AND SIGNED BY: PILLO FISH MD DATE: 05/16/21 2246 CC: JEOVANY JARVIS MD; PCP,NO ~MTH0 0 Heart Score: C/O Chest Pain: No HEART Score for Chest Pain: HEART Score for Chest Pain Response (Comments) Value History Slighlty/Non-Suspicious 0 ECG Nonspecific Repolarizatio 1 Age >45 - < 65 1 Risk Factors 1 or 2 Risk Factors 1 Troponin < Normal Limit 0 Total 3 Risk Factors: Risk Factors: DM, Current or recent (<one month) smoker, HTN, HLP, family history of CAD, obesity. Risk Scores: Score 0 - 3: 2.5% MACE over next 6 weeks - Discharge Home Score 4 - 6: 20.3% MACE over next 6 weeks - Admit for Clinical Observation Score 7 - 10: 72.7% MACE over next 6 weeks - Early Invasive Strategies Course & Med Decision Making: Course & Med Decision Making Pertinent Labs and Imaging studies reviewed. (See chart for details) Patient avoid Alcohol and start Librium 100 mg 4 times daily for 3 days. Then switch 100 mg 3 times daily for 3 days then take 100 mg twice a day x3 days. Then switch to 50 mg 3 times daily for 3 days ,then 50 mg daily for 3 days. By this time should be following up with primary care. Counseling center or [facility]. Wear clonidine patch until follow up with primary Impression: 1. Alcohol withdrawal Symptoms 2. Hx. Chronic alcoholism 3. Hx. Hypertension 4. Hx. Depression 5. Hypomagnesium 1.3 6. Malnutrition Alb. 3.0 7. Elevated Glucose 176. 8. Alcohol level. 35 on arrival to ED [] Dragon Disclaimer: Dragon Disclaimer: This electronic medical record was generated, in whole or in part, using a voice recognition dictation system. Departure Departure: Referrals: PCP,NO (PCP) Scripts Chlordiazepoxide Hcl (CHLORDIAZEPOXIDE HCL) 25 Mg Capsule 100 MG PO QID for ETOH withdrawal, #30 CAP Prov: JEOVANY JARVIS MD 05/17/21 Nataly Disclaimer This chart was dictated in whole or in part using Voice Recognition software in a busy, high-work load, and often noisy Emergency Department environment. It may contain unintended and wholly unrecognized errors or omissions. JEOVANY JARVIS MD May 16, 2021 21:40
[2021-05-16 22:16] LABS: BASO # 0.1 x10^3/uL (0.0-0.2); BASO % 1 % (0-3); EOS # 0.1 x10^3/uL (0.0-0.7); EOS % 1 % (0-3); HEMATOCRIT 40.2 % (39.0-53.0); HEMOGLOBIN 13.7 g/dL (13.0-17.5); LYMPH % 30 % (24-48); MEAN CORPUSCULAR HEMOGLOBIN 32 pg (25-35); MEAN CORPUSCULAR HGB CONC 34 g/dL (31-37); MEAN CORPUSCULAR VOLUME 93 fL (79-100); MONO # 1.1 x10^3/uL (0.0-1.1); MONO % 16 % (0-9); NEUT # 3.4 x10^3uL (1.8-7.7); NEUT % 51 % (31-73); PLATELET COUNT 380 x10^3/uL (140-400); RED BLOOD COUNT 4.32 x10^6/uL (4.30-5.70); RED CELL DISTRIBUTION WIDTH 14.3 % (11.5-14.5); WHITE BLOOD COUNT 6.5 x10^3/uL (4.0-11.0)
[2021-05-16] MEDS: IV RINGERS SOLUTION,LACTATED 1,000 ML IV SCH (22:19)
[2021-05-16] MEDS: MVI, ADULT NO.4 WITH VIT K 10 ML, FOLIC ACID INJ 1 MG, THIAMINE INJ 100 MG in IV RINGER... IV ONE (22:19)
[2021-05-16] MEDS: ONDANSETRON PF 4 MG/2 ML VIAL. IV ONE (22:21)
[2021-05-16] MEDS: FAMOTIDINE 20 MG/2 ML VIAL IVP ONE (22:21)
[2021-05-16] MEDS: MAGNESIUM HYDROXIDE 2,400 MG/30 ML ORAL.SUSP. PO ONE (22:21)
[2021-05-16 22:24] LABS: CALCIUM 8.4 mg/dL (8.5-10.1); CREATININE 0.9 mg/dL (0.7-1.3); GFR 86.4; POTASSIUM 3.5 mmol/L (3.5-5.1)
[2021-05-16 22:37] LABS: DIRECT BILIRUBIN 0.3 mg/dL (0.0-0.2); MAGNESIUM 1.3 mg/dL (1.8-2.4); TOTAL BILIRUBIN 1.3 mg/dL (0.2-1.0); TOTAL PROTEIN 6.8 g/dL (6.4-8.2)
[2021-05-16] MEDS: cloNIDine TTS-2 1 PATCH PATCH TD ONE (22:48)
--- NOTE | 2021-05-16 22:50 | RAD ---
Exam: Chest one view INDICATION: Alcohol withdrawal, dyspnea TECHNIQUE: Frontal view of the chest Comparisons: 05/31/2020 FINDINGS: The cardiomediastinal silhouette and pulmonary vessels are within normal limits. Bandlike opacity at the right infrahilar region. No pleural effusion. IMPRESSION: Right infrahilar bandlike airspace disease may relate to atelectasis or developing consolidative proc ess. Electronically signed by: Pillo Davis MD (05/16/2021 10:47 PM) PETER
[2021-05-17] MEDS ORDERED: CHLO25CA9 PO (01:00)
[2021-05-17 01:07] LABS: BARBITURATES NEG (NEG); BENZODIAZEPINES NEG (NEG); CANNABINOIDS NEG (NEG); COCAINE NEG (NEG); METHADONE NEG (NEG); OPIATES NEG (NEG); PHENCYCLIDINE NEG (NEG)
[2021-05-17 01:08] LABS: AMPHETAMINE/METHAMPHETAMINE NEG (NEG)
[2021-05-17 01:12] LABS: BACTERIA,URINE 0 /HPF (0-FEW); BILIRUBIN,URINE NEG (NEG); CLARITY,URINE CLEAR; COLOR,URINE YELLOW; GLUCOSE,URINE NEG (NEG); NITRITE,URINE NEG (NEG); RBC,URINE 0 /HPF (0-2); SQUAMOUS EPITHELIAL CELL,UR OCC /LPF; UROBILINOGEN,URINE 0.2 mg/dL (0.2 mg/dL); WBC,URINE RARE /HPF (0-4)
[2021-05-17] MEDS: chlordiazePOXIDE HCL 25 MG CAPSULE PO ONE (01:12)
--- NOTE | 2021-05-17 07:32 | EKG ---
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
--- NOTE | 2021-05-17 07:33 | EKG ---
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
== END 2021-05-17 01:33 | disposition home or self-care (01) ==
LOC: ER 21:35
DX: F10.239 Alcohol dependence with withdrawal, unspecified (principal); I10 Essential (primary) hypertension; F32.9 Major depressive disorder, single episode, unspecified; E83.42 Hypomagnesemia; E46 Unspecified protein-calorie malnutrition; R73.9 Hyperglycemia, unspecified; F41.9 Anxiety disorder, unspecified; M19.90 Unspecified osteoarthritis, unspecified site; Z95.0 Presence of cardiac pacemaker; E03.9 Hypothyroidism, unspecified; K21.9 Gastro-esophageal reflux disease without esophagitis; Z87.442 Personal history of urinary calculi; Z68.23 Body mass index [BMI] 23.0-23.9, adult; Y90.1 Blood alcohol level of 20-39 mg/100 ml
CPT/HCPCS: 36415; 71045; 80048; 80076; 80307; 81001; 82550; 83690; 83735; 83880; 84443; 84484; 85025; 85610; 93005; 96365; 96366; 96372; 96375; 99285; G0480; J2060; J2405; J3490; J7120

== ENCOUNTER 2021-06-26 13:46 | Emergency (ER) | payer BC ==
[~2021-06-26] VITALS: Ht 180.3 cm; Wt 70.5 kg
[2021-06-26] MEDS ORDERED: IV RINGERS SOLUTION,LACTATED 1,000 ML IV ONE (14:15)
[2021-06-26] MEDS ORDERED: ONDANSETRON PF 4 MG/2 ML VIAL. IVP ONE (14:15)
[2021-06-26 14:40] LABS: BASO # 0.2 x10^3/uL (0.0-0.2); BASO % 2 % (0-3); EOS # 0.3 x10^3/uL (0.0-0.7); EOS % 3 % (0-3); HEMATOCRIT 42.3 % (39.0-53.0); HEMOGLOBIN 13.9 g/dL (13.0-17.5); LYMPH # 2.1 x10^3/uL (1.0-4.8); LYMPH % 25 % (24-48); MEAN CORPUSCULAR HEMOGLOBIN 31 pg (25-35); MEAN CORPUSCULAR HGB CONC 33 g/dL (31-37); MEAN CORPUSCULAR VOLUME 94 fL (79-100); MONO # 0.6 x10^3/uL (0.0-1.1); MONO % 7 % (0-9); NEUT # 5.4 x10^3uL (1.8-7.7); NEUT % 63 % (31-73); PLATELET COUNT 388 x10^3/uL (140-400); RED BLOOD COUNT 4.51 x10^6/uL (4.30-5.70); RED CELL DISTRIBUTION WIDTH 15.6 % (11.5-14.5); WHITE BLOOD COUNT 8.5 x10^3/uL (4.0-11.0)
[2021-06-26 14:45] LABS: CALCIUM 8.9 mg/dL (8.5-10.1); CREATININE 1.1 mg/dL (0.7-1.3); GFR 68.3; POTASSIUM 4.8 mmol/L (3.5-5.1)
--- NOTE | 2021-06-26 14:45 | RAD ---
AP chest. HISTORY: Chest pain, EtOH withdrawal AP view was taken of the chest. Patient had a previous sternotomy. There are calcified nodes unchange d from the old study. There are no acute infiltrates. There is no pleural effusion. IMPRESSION: 1. No acute chest disease. Electronically signed by: Magan Estrada MD (06/26/2021 2:42 PM) [id number]
[2021-06-26 14:52] LABS: ALBUMIN 4.2 g/dL (3.4-5.0); ALBUMIN/GLOBULIN RATIO 1.2 (1.0-1.7); TOTAL BILIRUBIN 0.5 mg/dL (0.2-1.0); TOTAL PROTEIN 7.7 g/dL (6.4-8.2)
--- NOTE | 2021-06-26 15:06 | PHYS DOC ---
Past History Past Medical History: Alcoholism, Anxiety, Arthritis Additional Past Medical Histor: HODGKIN'S LYMPHOMA 1990 (IN REMISSION) (HUSEYIN DUENAS) Past Surgical History: Other Additional Past Surgical Histo: pericardial stripping; tail of pancreas removed; cardiac ablation (HUSEYIN DUENAS) Smoking: Non-smoker Alcohol Use: None Drug Use: None (HUSEYIN DUENAS) General Adult EDM: Chief Complaint: WITHDRAWAL HPI: HPI: Patient is a 61 year old male with past medical history of chronic alcohol use disorder who presents with alcohol withdrawal. Patient reports he has typically been drinking 1/2 pint of fireball and 6 beers every day. His last alcoholic beverage was 3 days ago. Patient reports he is having body tremors as well as nausea and substernal chest pain. Patient reports his chest pain is worse when he bears down or "tenses up." Patient denies seizure-like activity, auditory/visual/tactile hallucinations, intractable vomiting, hematemesis. Patient states he has attempted to quit drinking several times in the past, but frequently relapses. He states that his work at the [facility] does have social workers available to employees. Patient has an appointment set up with them tomorrow, per his boss. Patient has no other complaints at this time. (HUSEYIN DUENAS) Review of Systems: Review of Systems: Constitutional: Denies fever, chills or generalized weakness Eyes: Denies change in visual acuity, visual field deficits or discharge HENT: Denies ear pain, nasal congestion or sore throat Respiratory: Denies cough or shortness of breath Cardiovascular: See HPI GI: See HPI : Denies dysuria or hematuria Musculoskeletal: Denies back pain or joint pain Integument: Denies rash or other skin lesion Neurologic: See HPI (HUSEYIN DUENAS) Current Medications: Current Meds: Current Medications Medications (Trade) Dose Ordered Sig/Manish Start Time Stop Time Status Last Admin Dose Admin Lactated Ringer's 1,000 ml @ 1,000 mls/hr 1X ONCE 06/26/21 14:15 06/26/21 15:14 Lorazepam (Ativan Inj) 1 mg 1X ONCE 06/26/21 14:15 06/26/21 14:21 DC Ondansetron HCl (Zofran) 4 mg 1X ONCE 06/26/21 14:15 06/26/21 14:21 DC (HUSEYIN DUENAS) Allergies: Allergies: Allergies Coded Allergies Type Severity Reaction Last Updated Verified morphine Allergy Severe SOA, HIVES/RASH 06/26/21 Yes (HUSEYIN DUENAS) Physical Exam: PE: Constitutional: Patient is thin, well groomed, slight tremor noted on initial exam, non-toxic appearance. HENT: Normocephalic, atraumatic, bilateral external ears normal, nose normal. Eyes: PERRL, EOMI, conjunctiva normal, no discharge. Neck: Normal range of motion, no stridor. Cardiovascular: Heart rate regular rhythm, no murmur. Lungs & Thorax: Bilateral breath sounds clear to auscultation. Abdomen: Bowel sounds normal, soft, no tenderness, no masses, no pulsatile masses. Skin: Warm, dry, no erythema, no rash. Extremities: No tenderness, no cyanosis, no clubbing, ROM intact, no edema. Neurologic: Alert and oriented x4, normal motor function, normal sensory function, no focal deficits noted. (HUSEYIN DUENAS) Current Patient Data: Labs: Laboratory Tests Test 06/26/21 14:15 06/26/21 16:15 White Blood Count 8.5 x10^3/uL (4.0-11.0) Red Blood Count 4.51 x10^6/uL (4.30-5.70) Hemoglobin 13.9 g/dL (13.0-17.5) Hematocrit 42.3 % (39.0-53.0) Mean Corpuscular Volume 94 fL (79-100) Mean Corpuscular Hemoglobin 31 pg (25-35) Mean Corpuscular Hemoglobin Concent 33 g/dL (31-37) Red Cell Distribution Width 15.6 % (11.5-14.5) Platelet Count 388 x10^3/uL (140-400) Neutrophils (%) (Auto) 63 % (31-73) Lymphocytes (%) (Auto) 25 % (24-48) Monocytes (%) (Auto) 7 % (0-9) Eosinophils (%) (Auto) 3 % (0-3) Basophils (%) (Auto) 2 % (0-3) Neutrophils # (Auto) 5.4 x10^3uL (1.8-7.7) Lymphocytes # (Auto) 2.1 x10^3/uL (1.0-4.8) Monocytes # (Auto) 0.6 x10^3/uL (0.0-1.1) Eosinophils # (Auto) 0.3 x10^3/uL (0.0-0.7) Basophils # (Auto) 0.2 x10^3/uL (0.0-0.2) Sodium Level 132 mmol/L (136-145) Potassium Level 4.8 mmol/L (3.5-5.1) Chloride Level 100 mmol/L (98-107) Carbon Dioxide Level 23 mmol/L (21-32) Anion Gap 9 (6-14) Blood Urea Nitrogen 10 mg/dL (8-26) Creatinine 1.1 mg/dL (0.7-1.3) Estimated GFR (Cockcroft-Gault) 68.3 BUN/Creatinine Ratio 9 (6-20) Glucose Level 127 mg/dL (70-99) Calcium Level 8.9 mg/dL (8.5-10.1) Total Bilirubin 0.5 mg/dL (0.2-1.0) Aspartate Amino Transf (AST/SGOT) 42 U/L (15-37) Alanine Aminotransferase (ALT/SGPT) 39 U/L (16-63) Alkaline Phosphatase 118 U/L (46-116) Troponin I High Sensitivity 12 ng/L (4-75) Total Protein 7.7 g/dL (6.4-8.2) Albumin 4.2 g/dL (3.4-5.0) Albumin/Globulin Ratio 1.2 (1.0-1.7) Lipase 56 U/L (73-393) Ethyl Alcohol Level < 10 mg/dL (0-10) Urine Opiates Screen Neg (NEG) Urine Methadone Screen Neg (NEG) Urine Barbiturates Neg (NEG) Urine Phencyclidine Screen Neg (NEG) Urine Amphetamine/Methamphetamine Neg (NEG) Urine Benzodiazepines Screen Neg (NEG) Urine Cocaine Screen Neg (NEG) Urine Cannabinoids Screen Neg (NEG) Urine Ethyl Alcohol Neg (NEG) Vital Signs: Vital Signs Date Time Temp Pulse Resp B/P (MAP) Pulse Ox O2 Delivery O2 Flow Rate FiO2 06/26/21 16:00 70 18 134/73 (93) 99 Room Air 06/26/21 15:15 84 18 145/84 (104) 98 Room Air 06/26/21 14:25 98.2 120 18 150/102 (118) 99 Room Air (HUSEYIN DUENAS) EKG: EKG: EKG Interpreted by Dr. Solis at 1409: Sinus tachycardia at 103 bpm with no ectopic beats. Left axis deviation. QT 336 ms/QTc 442 ms. No STEMI. (HUSEYIN DUENAS) Radiology/Procedures: Radiology/Procedures: PROCEDURE: CHEST AP ONLY AP chest. HISTORY: Chest pain, EtOH withdrawal AP view was taken of the chest. Patient had a previous sternotomy. There are calcified nodes unchanged from the old study. There are no acute infiltrates. There is no pleural effusion. IMPRESSION: 1. No acute chest disease. Electronically signed by: Magan Estrada MD (06/26/2021 2:42 PM) [id number] (HUSEYIN DUENAS) Heart Score: C/O Chest Pain: No (HUSEYIN DUENAS) Course & Med Decision Making: Course & Med Decision Making Pertinent Labs and Imaging studies reviewed. (See chart for details) Patient is a 61-year-old male 3 days status post his last beverage with known alcoholism. Patient has not experienced any neurological symptoms nor does he typically experience these with alcohol withdrawal in the past. Patient will be given fluids, Zofran IV. Ativan ordered pending ethanol level. Patient's nausea is controlled with 1 dose of IV Zofran. His tremors are controlled with 2 doses of Ativan. At this time, patient has adequate follow-up in place. He will be discharged to home with Librium taper. Strict return precautions were provided. Additionally, he is aware that it is extremely dangerous to combine Librium with alcohol. Community resources also provided, though he has adequate detox/rehab outpatient follow-up. Patient understands and is agreeable to discharge plan. (HUSEYIN DUENAS) Dragon Disclaimer: Dragon Disclaimer: This electronic medical record was generated, in whole or in part, using a voice recognition dictation system. (HUSEYIN DUENAS) Departure Departure: Impression: Primary Impression: Alcohol dependence with withdrawal Qualified Codes: F10.230 - Alcohol dependence with withdrawal, uncomplicated Disposition: HOME / SELF CARE / HOMELESS Condition: IMPROVED Referrals: PCP,NO (PCP) Patient Instructions: Alcohol Withdrawal, Imhe-by-Jewu, Chronic Alcoholism Additional Instructions: EMERGENCY DEPARTMENT GENERAL DISCHARGE INSTRUCTIONS Thank you for coming to [facility] (ED) today and trusting us with you care. We trust that you had a positive experience in our Emergency Department. If you wish to speak to the department management, you may call the director at [phone]. YOUR FOLLOW UP INSTRUCTIONS ARE FOLLOWS: 1. Follow up with your primary care doctor. If you do not have a primary doctor, please ask for a resource list of physicians or clinics that may be able to assist you with follow up care. 2. The emergency provider has interpreted your imaging studies, if any were ordered. The radiology tax specialist also reviewed them. If there is a change in the findings, you will be notified in 48 hours when at all possible. 3. If a lab test or culture has been done, your results will be reviewed and you will be notified if you need a change in treatment. 4. DO NOT DRINK ALCOHOL WHILE TAKING THIS MEDICATION. Follow instructions verbalized to you and refer to the printouts if needed. ADDITIONAL INSTRUCTIONS AND INFORMATION: 1. Your care today has been supervised by a physician who is specially trained in emergency care. Many problems require more than one evaluation for a complete diagnosis and treatment. We recommend that you schedule your follow up appointment as recommended to ensure complete treatment of you illness or injury. If you are unable to obtain follow up care and continue to have a problem, or if your condition worsens, we recommend that you return to the ED. 2. We are not able to safely determine your condition over the phone nor are we able to give sound medical advice over the phone. For these safety reasons, if you call for medical advice we will ask you to come to the ED for further evaluation. 3. If you have any questions regarding these discharge instructions please call the ED at [phone]. SAFETY INFORMATION: In the interest of safety, wellness, and injury prevention; we encourage you to wear your seat belt, if you smoke; quite smoking, and we encourage family to use a protective helmet for bicycling and other sporting events that present an increased risk for head injury. IF YOUR SYMPTOMS WORSEN OR NEW SYMPTOMS DEVELOP, OR YOU HAVE CONCERNS ABOUT YOUR CONDITION; OR IF YOUR CONDITION WORSENS WHILE YOU ARE WAITING FOR YOUR FOLLOW UP APPOINTMENT; EITHER CONTACT YOUR PRIMARY CARE DOCTOR, THE PHYSICIAN WHOSE NAME AND NUMBER YOU WERE GIVEN, OR RETURN TO THE ED IMMEDIATELY. Scripts Chlordiazepoxide Hcl (CHLORDIAZEPOXIDE HCL) 25 Mg Capsule 25 MG PO UD for EtOH withdrawal for 4 Days, #15 CAP Day 1: Take 2 tablets by mouth every 6 hours Day 2: Take 1 tablet by mouth every 6 hours Day 3: Take 1 tablet by mouth every 12 hours Day 4: Take 1 tablet by mouth at bedtime Prov: HUSEYIN DUENAS 06/26/21 Attending Signature Attending Signature I have reviewed the PA/CHIEF RADIATION THERAPIST's note and plan of care. I was available for consultation as needed during the patient's visit in the emergency department. I agree with the clinical impression, plan, and disposition. (EBER SOLIS DO) HUSEYIN DUENAS Jun 26, 2021 15:06 EBER SOLIS DO Jun 27, 2021 00:55
[2021-06-26 16:00] VITALS: BP 134/73
[2021-06-26 16:48] LABS: BARBITURATES NEG (NEG); BENZODIAZEPINES NEG (NEG); CANNABINOIDS NEG (NEG); COCAINE NEG (NEG); METHADONE NEG (NEG); OPIATES NEG (NEG); PHENCYCLIDINE NEG (NEG)
[2021-06-26 16:51] LABS: AMPHETAMINE/METHAMPHETAMINE NEG (NEG)
[2021-06-26] MEDS ORDERED: CHLO25CA9 PO (17:23)
--- NOTE | 2021-06-26 19:48 | EKG ---
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
== END 2021-06-26 17:30 | disposition home or self-care (01) ==
LOC: ER 13:46
DX: F10.239 Alcohol dependence with withdrawal, unspecified (principal); M19.90 Unspecified osteoarthritis, unspecified site; F41.9 Anxiety disorder, unspecified; Z88.5 Allergy status to narcotic agent; Y90.0 Blood alcohol level of less than 20 mg/100 ml
CPT/HCPCS: 36415; 71045; 80053; 80307; 83690; 84484; 85025; 93005; 96361; 96374; 96375; 99285; G0480; J2060; J2405; J7120

== ENCOUNTER 2021-08-08 09:50 | Emergency (ER) | payer BC ==
[~2021-08-08] VITALS: Ht 180.3 cm; Wt 70.5 kg
[2021-08-08 10:13] LABS: BASO # 0.1 x10^3/uL (0.0-0.2); BASO % 2 % (0-3); EOS % 0 % (0-3); HEMATOCRIT 42.6 % (39.0-53.0); HEMOGLOBIN 14.5 g/dL (13.0-17.5); LYMPH # 2.1 x10^3/uL (1.0-4.8); LYMPH % 24 % (24-48); MEAN CORPUSCULAR HEMOGLOBIN 31 pg (25-35); MEAN CORPUSCULAR HGB CONC 34 g/dL (31-37); MEAN CORPUSCULAR VOLUME 90 fL (79-100); MONO # 0.7 x10^3/uL (0.0-1.1); MONO % 8 % (0-9); NEUT # 5.8 x10^3uL (1.8-7.7); NEUT % 67 % (31-73); PLATELET COUNT 482 x10^3/uL (140-400); RED BLOOD COUNT 4.72 x10^6/uL (4.30-5.70); WHITE BLOOD COUNT 8.7 x10^3/uL (4.0-11.0)
[2021-08-08 10:27] LABS: CALCIUM 8.9 mg/dL (8.5-10.1); GFR 76.2
--- NOTE | 2021-08-08 10:27 | PHYS DOC ---
Past History Past Medical History: Alcoholism, Anxiety, Arthritis Additional Past Medical Histor: HODGKIN'S LYMPHOMA 1990 (IN REMISSION) Past Surgical History: Other Additional Past Surgical Histo: pericardial stripping; tail of pancreas removed; cardiac ablation Smoking: Non-smoker Alcohol Use: Heavy Drug Use: None General Adult EDM: Chief Complaint: CHEST PAIN HPI: HPI: 61-year-old male presents with chest pain. The patient started having pain 90 minutes ago. It is a central pressure with no radiation. He has a history of alcoholism and his last drink was around 2 AM. The patient tells me he drinks alcohol secondary to his generalized anxiety. He had stopped drinking with the help of the program but fell off the wagon and has been drinking again. He would like to get back off the alcohol. He is just very nervous about it and the chest pain makes him worried. No history of stents or bypass. He had pericardial stripping after radiation therapy. Review of Systems: Review of Systems: Constitutional: Denies fever or chills Eyes: Denies change in visual acuity HENT: Denies nasal congestion or sore throat Respiratory: Denies cough or shortness of breath Cardiovascular: Chest pain GI: Denies abdominal pain, nausea, vomiting, bloody stools or diarrhea : Denies dysuria Musculoskeletal: Denies back pain or joint pain Integument: Denies rash Neurologic: Denies headache, focal weakness or sensory changes Endocrine: Denies polyuria or polydipsia Lymphatic: Denies swollen glands Psychiatric: Alcoholism, anxiety Current Medications: Current Meds: Current Medications Medications (Trade) Dose Ordered Sig/Manish Start Time Stop Time Status Last Admin Dose Admin Lorazepam (Ativan Inj) 2 mg 1X ONCE 08/08/21 10:15 08/08/21 10:16 DC 08/08/21 10:15 2 MG Allergies: Allergies: Allergies Coded Allergies Type Severity Reaction Last Updated Verified morphine Allergy Severe SOA, HIVES/RASH 06/26/21 Yes Physical Exam: PE: Constitutional: Well developed, well nourished, no acute distress, non-toxic appearance. [] HENT: Normocephalic, atraumatic, bilateral external ears normal, oropharynx moist, no oral exudates, nose normal. [] Eyes: PERRLA, EOMI, conjunctiva normal, no discharge. [] Neck: Normal range of motion, no tenderness, supple, no stridor. [] Cardiovascular: Heart rate 116, regular rhythm, no murmur [] Lungs & Thorax: Bilateral breath sounds clear to auscultation [] Abdomen: Bowel sounds normal, soft, no tenderness, no masses, no pulsatile masses. [] Skin: Warm, dry, no erythema, no rash. [] Back: No tenderness, no CVA tenderness. [] Extremities: No tenderness, no cyanosis, no clubbing, ROM intact, no edema. [] Neurologic: Alert and oriented X 3, normal motor function, normal sensory function, no focal deficits noted. [] Psychologic: Affect normal, judgement normal, mood anxious. [] Current Patient Data: Labs: Laboratory Tests Test 08/08/21 09:57 White Blood Count 8.7 x10^3/uL (4.0-11.0) Red Blood Count 4.72 x10^6/uL (4.30-5.70) Hemoglobin 14.5 g/dL (13.0-17.5) Hematocrit 42.6 % (39.0-53.0) Mean Corpuscular Volume 90 fL (79-100) Mean Corpuscular Hemoglobin 31 pg (25-35) Mean Corpuscular Hemoglobin Concent 34 g/dL (31-37) Red Cell Distribution Width 15.0 % (11.5-14.5) H Platelet Count 482 x10^3/uL (140-400) H Neutrophils (%) (Auto) 67 % (31-73) Lymphocytes (%) (Auto) 24 % (24-48) Monocytes (%) (Auto) 8 % (0-9) Eosinophils (%) (Auto) 0 % (0-3) Basophils (%) (Auto) 2 % (0-3) Neutrophils # (Auto) 5.8 x10^3uL (1.8-7.7) Lymphocytes # (Auto) 2.1 x10^3/uL (1.0-4.8) Monocytes # (Auto) 0.7 x10^3/uL (0.0-1.1) Eosinophils # (Auto) 0.0 x10^3/uL (0.0-0.7) Basophils # (Auto) 0.1 x10^3/uL (0.0-0.2) Vital Signs: Vital Signs Date Time Temp Pulse Resp B/P (MAP) Pulse Ox O2 Delivery O2 Flow Rate FiO2 08/08/21 09:50 98.2 124 20 190/96 (127) 99 Room Air EKG: EKG: Sinus rhythm, rate 120, leftward axis, no ST elevation or depression. [] Radiology/Procedures: Radiology/Procedures: [] Impressions: XR CHEST 1V INDICATION: CHEST PAIN . COMPARISON STUDY: 06/26/2021. FINDINGS: Lungs: Normal lung volume. No pulmonary mass or consolidation. The tracheobronchial tree and hilar structures are normal. Pleura: No pleural effusion or pneumothorax. Heart and Mediastinum: The cardiomediastinal silhouette is normal. Atherosclerosis of the thoracic aorta. Calcified mediastinal lymph nodes. IMPRESSION: No acute cardiopulmonary process. Electronically signed by: Sherman Elmore MD (08/08/2021 10:31 AM) [id number] DICTATED AND SIGNED BY: SHERMAN ELMORE MD DATE: 08/08/21 1031 CC: JAYNA BOSWELL DO; PCP,NO ~ Heart Score: C/O Chest Pain: Yes HEART Score for Chest Pain: HEART Score for Chest Pain Response (Comments) Value History Slighlty/Non-Suspicious 0 ECG Nonspecific Repolarizatio 1 Age >45 - < 65 1 Risk Factors 1 or 2 Risk Factors 1 Troponin < Normal Limit 0 Total 3 Risk Factors: Risk Factors: DM, Current or recent (<one month) smoker, HTN, HLP, family history of CAD, obesity. Risk Scores: Score 0 - 3: 2.5% MACE over next 6 weeks - Discharge Home Score 4 - 6: 20.3% MACE over next 6 weeks - Admit for Clinical Observation Score 7 - 10: 72.7% MACE over next 6 weeks - Early Invasive Strategies Course & Med Decision Making: Course & Med Decision Making Pertinent Labs and Imaging studies reviewed. (See chart for details) EKG is significant for tachycardia rate 120. Chest x-ray is negative for acute findings. His labs are unremarkable. His troponin is negative. His alcohol is 209. Patient has been given 2 mg of Ativan for his anxiety. The patient states a desire to reconnect with a rehab program so he can get back off the alcohol. He is medically stable for behavioral health evaluation. The behavioral team has provided patient with resources for alcohol treatment. He is not suicidal homicidal. We will discharge him with a prescription for Librium to prevent alcohol withdrawal. I have stressed to the patient that if he takes this medication and drinks alcohol it can kill him. He cannot drink and take this medication. He states verbal understanding. He is stable for discharge at this time. [] Nataly Disclaimer: Nataly Disclaimer: This electronic medical record was generated, in whole or in part, using a voice recognition dictation system. Departure Departure: Impression: Primary Impression: Alcoholism Additional Impression: Chest pain Disposition: HOME / SELF CARE / HOMELESS Condition: STABLE Referrals: PCP,JUAN (PCP) Patient Instructions: Alcohol Withdrawal, [id number], Chlordiazepoxide capsules Scripts Chlordiazepoxide Hcl (CHLORDIAZEPOXIDE HCL) 25 Mg Capsule 25 MG PO Q6HRS for alcohol withdrawal, #13 CAP 2 capsules Q8H on day 1 then, 1 Capsule Q6H on day 2 then, 1 capsule Q12H on day 3 then, 1 capsule Q24H on day 4. Prov: JAYNA BOSWELL DO 08/08/21 JAYNA BOSWELL DO August 08, 2021 10:27
[2021-08-08 10:32] LABS: ALBUMIN 3.9 g/dL (3.4-5.0); TOTAL BILIRUBIN 0.7 mg/dL (0.2-1.0); TOTAL PROTEIN 7.7 g/dL (6.4-8.2)
--- NOTE | 2021-08-08 10:34 | RAD ---
XR CHEST 1V INDICATION: CHEST PAIN . COMPARISON STUDY: 06/26/2021. FINDINGS: Lungs: Normal lung volume. No pulmonary mass or consolidation. The tracheobronchial tree and hilar st ructures are normal. Pleura: No pleural effusion or pneumothorax. Heart and Mediastinum: The cardiomediastinal silhouette is normal. Atherosclerosis of the thoracic ao rta. Calcified mediastinal lymph nodes. IMPRESSION: No acute cardiopulmonary process. Electronically signed by: Diony Santana MD (08/08/2021 10:31 AM) [id number]
[2021-08-08] MEDS ORDERED: IV NORMAL SALINE 1,000ML 1,000 ML IV ONE (11:00)
[2021-08-08 12:54] VITALS: BP 176/97
[2021-08-08 13:31] LABS: BARBITURATES NEG (NEG); BENZODIAZEPINES NEG (NEG); CANNABINOIDS NEG (NEG); COCAINE NEG (NEG); METHADONE NEG (NEG); OPIATES NEG (NEG); PHENCYCLIDINE NEG (NEG)
[2021-08-08 13:35] LABS: AMPHETAMINE/METHAMPHETAMINE NEG (NEG)
[2021-08-08 14:01] LABS: BACTERIA,URINE 0 /HPF (0-FEW); CLARITY,URINE CLEAR; COLOR,URINE YELLOW; GLUCOSE,URINE NEG (NEG); NITRITE,URINE NEG (NEG); RBC,URINE 0 /HPF (0-2); UROBILINOGEN,URINE 0.2 mg/dL (0.2 mg/dL); WBC,URINE 0 /HPF (0-4)
[2021-08-08 14:02] LABS: SQUAMOUS EPITHELIAL CELL,UR OCC /LPF
[2021-08-08] MEDS ORDERED: CHLO25CA9 PO (14:10)
--- NOTE | 2021-08-09 07:21 | EKG ---
[address] [address] Test Date: 2021-08-08 Test Time: 09:56:36 Pat Name: JONATHON BOGGS Department: Room: Gender: M Prepper: : 1960 Requested By: JAYNA BOSWELL Order Number: [id number] Reading MD: Measurements Intervals [place] Rate: 120 P: 90 DE: 140 QRS: -38 QRSD: 102 T: 91 QT: 316 QTc: 451 Interpretive Statements SINUS TACHYCARDIA ABNORMAL LEFT AXIS DEVIATION LEFT ANTERIOR FASCICULAR BLOCK ST & T ABNORMALITY, CONSIDER HIGH LATERAL ISCHEMIA OR LEFT VENTRICULAR STRAIN ABNORMAL ECG RI6.02 No previous ECG available for comparison
== END 2021-08-08 14:20 | disposition home or self-care (01) ==
LOC: ER 09:50
DX: R07.89 Other chest pain (principal); F10.20 Alcohol dependence, uncomplicated; F41.9 Anxiety disorder, unspecified; M19.90 Unspecified osteoarthritis, unspecified site; F41.1 Generalized anxiety disorder; Z88.5 Allergy status to narcotic agent; Y90.7 Blood alcohol level of 200-239 mg/100 ml
CPT/HCPCS: 36415; 71045; 80053; 80307; 81001; 84484; 85025; 93005; 96374; 99285; G0480; J2060; J7030

== ENCOUNTER 2021-08-08 18:21 | Inpatient (IN) | payer BC ==
[~2021-08-08] VITALS: Ht 180.3 cm; Wt 71.1 kg
--- NOTE | 2021-08-08 18:33 | PHYS DOC ---
Past History Past Medical History: Alcoholism, Anxiety, Arthritis Additional Past Medical Histor: HODGKIN'S LYMPHOMA 1990 (IN REMISSION) Past Surgical History: Other Additional Past Surgical Histo: pericardial stripping; tail of pancreas removed; cardiac ablation Smoking: Non-smoker Alcohol Use: Heavy Drug Use: None Adult General Chief Complaint Chief Complaint: TREMORS HPI HPI Patient is a 61-year-old male, endorsing alcoholism who presents to the emergency department with a chief complaint of withdrawals. States he was in the emergency department earlier in the day and sent home with some Librium. States he did take it but it did not help. Dates his last drink was last night. Denies any recent travels, traumas, illness, fevers, chest pain, shortness of breath, abdominal pain, vomiting, diarrhea, dysuria, hematuria or blood in the stool. States he does have some nausea. States he did not eat or drink anything today. Denies any known ill contacts. Review of Systems Review of Systems Review of systems otherwise unremarkable except noted in HPI Allergies Allergies Allergies Coded Allergies Type Severity Reaction Last Updated Verified morphine Allergy Severe SOA, HIVES/RASH 06/26/21 Yes Physical Exam Physical Exam Constitutional: Well developed, well nourished, no acute distress, non-toxic appearance, has tremors, mild diaphoresis. [] HENT: Normocephalic, atraumatic, bilateral external ears normal, oropharynx moist, no oral exudates, nose normal. [] Eyes: PERRLA, EOMI, conjunctiva normal, no discharge. [] Neck: Normal range of motion, no tenderness, supple, no stridor. [] Cardiovascular: Sinus tachycardia Lungs & Thorax: Bilateral breath sounds clear to auscultation [] Abdomen: soft, no tenderness, no masses, no pulsatile masses. [] Skin: Warm, dry, no erythema, no rash. [] Extremities: No tenderness, no cyanosis, no clubbing, ROM intact, no edema. [] Neurologic: Alert and oriented X 3, normal motor function, normal sensory fun ction, able to sit, stand and walk without issue no focal deficits noted. [] Psychologic: Anxious, no SI, no HI, no hallucinations EKG EKG [] Radiology/Procedures Radiology/Procedures [] Heart Score C/O Chest Pain: No Risk Factors: Risk Factors: DM, Current or recent (<one month) smoker, HTN, HLP, family history of CAD, obesity. Risk Scores: Risk Factors: DM, Current or recent (<one month) smoker, HTN, HLP, family history of CAD, obesity. Course & Med Decision Making Course & Med Decision Making Patient is a 61-year-old male who presents with a chief complaint of concern for alcohol withdrawal Vital signs notable for tachycardia and hypertension. Physical exam noted above. EKG with a rate of 115, QRS 102, QTc 475, no STEMI. Troponin not concerning for Laboratory analysis notable for mild leukocytosis and hypomagnesemia. Started on IV fluid resuscitation. Given magnesium. Given folic acid. Given thiamine. Given IM dose of phenobarbital Discussed findings with patient and recommended admission for continued evaluation and treatment of his alcohol withdrawals and hypomagnesemia and malnutrition. Patient grateful, verbalized understanding and agreed with plan of admission [] Dragon Disclaimer Dragon Disclaimer This electronic medical record was generated, in whole or in part, using a voice recognition dictation system. Departure Departure: Impression: Primary Impression: Alcohol withdrawal Additional Impression: Hypomagnesemia Disposition: ADMITTED INPATIENT Admitting Physician: Murali Zurita Condition: STABLE Referrals: PCP,NO (PCP) Problem Qualifiers JACOB COLEMAN MD August 08, 2021 18:33
[2021-08-08] MEDS ORDERED: IV RINGERS SOLUTION,LACTATED 1,000 ML IV ONE ×2 (18:45→20:30)
[2021-08-08 19:07] LABS: BASO # 0.2 x10^3/uL (0.0-0.2); BASO % 2 % (0-3); EOS % 0 % (0-3); HEMATOCRIT 39.1 % (39.0-53.0); HEMOGLOBIN 13.2 g/dL (13.0-17.5); LYMPH # 1.5 x10^3/uL (1.0-4.8); LYMPH % 11 % (24-48); MEAN CORPUSCULAR HEMOGLOBIN 31 pg (25-35); MEAN CORPUSCULAR HGB CONC 34 g/dL (31-37); MEAN CORPUSCULAR VOLUME 91 fL (79-100); MONO # 0.9 x10^3/uL (0.0-1.1); MONO % 7 % (0-9); NEUT # 10.7 x10^3uL (1.8-7.7); NEUT % 80 % (31-73); PLATELET COUNT 418 x10^3/uL (140-400); RED BLOOD COUNT 4.31 x10^6/uL (4.30-5.70); RED CELL DISTRIBUTION WIDTH 15.3 % (11.5-14.5); WHITE BLOOD COUNT 13.3 x10^3/uL (4.0-11.0)
[2021-08-08 19:20] LABS: CREATININE 0.9 mg/dL (0.7-1.3); GFR 86.1; POTASSIUM 4.2 mmol/L (3.5-5.1)
[2021-08-08 19:25] LABS: ALBUMIN 3.7 g/dL (3.4-5.0); ALBUMIN/GLOBULIN RATIO 1.2 (1.0-1.7); TOTAL BILIRUBIN 1.2 mg/dL (0.2-1.0); TOTAL PROTEIN 6.9 g/dL (6.4-8.2)
[2021-08-08] MEDS ORDERED: THIAMINE 100 MG TABLET. PO ONE (20:30)
[2021-08-08] MEDS ORDERED: ONDANSETRON PF 4 MG/2 ML VIAL. IVP PRN (20:30)
[2021-08-08] MEDS ORDERED: FOLIC ACID 1 MG TABLET PO ONE (20:30)
[2021-08-08] MEDS ORDERED: MAGNESIUM SULFATE 2GM 50 ML IV ONE (20:30)
[2021-08-08] MEDS ORDERED: PHENobarbital 65 MG/ML VIAL. IM ONE (20:30)
[2021-08-08 22:54] VITALS: BP 130/78
--- NOTE | 2021-08-08 23:00 | NUR ---
Admitted this 89 y/o male to rm 124 from ER with cc of alcohol withdrawal. Pt. AetOx3. States last alcohol intake was 08/07 at approx. 2200. Tremors noted in bilat. hands/arms. Requires assist of one getting into bed. Pt. refused covid testing. Pt. placed in covid isolation. Denies discomfort.
--- NOTE | 2021-08-09 06:00 | NUR ---
Pt. has rested quietly throughout NOC. Cont. to have tremors in hands, Tele showing NSR with a few periods of tachycardia. Pt. cont. to deny auditory or visual hallucination. Education given on low magnesium. Cont. to deny discomfort. No further changes from previous assessment.
[2021-08-09 06:20] VITALS: BP 159/81
[2021-08-09 06:22] LABS: BASO # 0.1 x10^3/uL (0.0-0.2); BASO % 1 % (0-3); EOS # 0.1 x10^3/uL (0.0-0.7); EOS % 1 % (0-3); HEMOGLOBIN 12.5 g/dL (13.0-17.5); LYMPH # 1.7 x10^3/uL (1.0-4.8); LYMPH % 16 % (24-48); MEAN CORPUSCULAR HEMOGLOBIN 31 pg (25-35); MEAN CORPUSCULAR HGB CONC 34 g/dL (31-37); MEAN CORPUSCULAR VOLUME 93 fL (79-100); MONO # 1.1 x10^3/uL (0.0-1.1); MONO % 10 % (0-9); NEUT # 7.5 x10^3uL (1.8-7.7); NEUT % 71 % (31-73); PLATELET COUNT 280 x10^3/uL (140-400); RED BLOOD COUNT 3.99 x10^6/uL (4.30-5.70); WHITE BLOOD COUNT 10.4 x10^3/uL (4.0-11.0)
[2021-08-09 06:24] LABS: CREATININE 0.7 mg/dL (0.7-1.3); POTASSIUM 3.5 mmol/L (3.5-5.1)
--- NOTE | 2021-08-09 07:23 | EKG ---
[address] [address] Test Date: 2021-08-08 Test Time: 18:44:00 Pat Name: JONATHON BOGGS Department: Room: 124 A Gender: M Crossing Supervisor: : 1960 Requested By: JACOB COLEMAN Order Number: [id number] Reading MD: Jori Wood MD Measurements Intervals [place] Rate: 115 P: 90 DE: 140 QRS: -26 QRSD: 102 T: 67 QT: 342 QTc: 475 Interpretive Statements SINUS TACHYCARDIA LEFTWARD AXIS LVH WITH REPOLARIZATION ABNORMALITY Electronically Signed On 08-15-2021 9:30:19 CDT by Jori Wood MD
[2021-08-09] MEDS ORDERED: LIDO:MAALOX 1:1 20 ML SINGLE DOSE. PO ONE (08:45)
[2021-08-09 10:49] VITALS: BP 187/93
[2021-08-09] MEDS ORDERED: cloNIDine TTS-3 1 PATCH PATCH TD SCH (11:30)
--- NOTE | 2021-08-09 11:59 | HP ---
DATE OF SERVICE: 08/09/2021 ADMIT DATE: 08/08/2021 ATTENDING PHYSICIAN: Dr. Delgadillo. No local physician. CHIEF COMPLAINT: Weakness and nausea. HISTORY OF PRESENT ILLNESS: The patient is a 61-year-old gentleman, chronic alcoholic who tried to quit drinking. He has significant tremors, nausea, symptoms consistent with withdrawal. He had no seizures. He was sent home with Librium earlier in the day, it has not helped. He is admitted then with alcohol withdrawal, early delirium tremens. CIWA protocol was started. PAST MEDICAL HISTORY: Interesting, he has chronic alcoholism. He has been in various programs without any improvement. He has generalized anxiety with depression and arthritis. Supposedly, he had Hodgkin's lymphoma 30 years ago. He was treated, in remission. I do not know the details and the extent of disease. PAST SURGICAL HISTORY: Includes resection of the tail of the pancreas, cardiac ablation and pericardial stripping, exact diagnosis that lead to these procedures is unclear. SOCIAL HISTORY: He is a nonsmoker. He is a heavy alcohol user. ALLERGIES: MORPHINE. CURRENT MEDICATIONS: Only Librium prescribed from the ED. FAMILY HISTORY: Noncontributory. 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 All other systems reviewed and turned to be negative. PHYSICAL EXAMINATION: GENERAL: When I saw him, this is a pleasant sober gentleman. VITAL SIGNS: Initial vital signs showed a blood pressure 150/80, pulse is 97 and regular. He was afebrile, oxygen saturation 98% on room air. HEENT: Head is without trauma. Pupils are reactive. Sclerae are nonicteric. Oropharynx is clear. NECK: Supple, no bruits. LUNGS: Good breath sounds. CARDIOVASCULAR: Showed regular heart tones. No rubs, murmurs. Peripheral pulses are palpable and full. ABDOMEN: Soft, scaphoid, nontender, no organomegaly. Bowel sounds are hypoactive. EXTREMITIES: Show no edema. NEUROLOGIC FINDINGS: Focally intact. SKIN: Warm and dry. PERTINENT LABORATORY STUDIES: The hemoglobin on admission was 13.2 g/dL, white count 13,300. Electrolytes within normal range. Nonfasting blood sugar 140, creatinine 0.7 mg %, potassium 4.2 mEq. Transaminases are normal. Total bilirubin is 1.2. Chest x-ray on admission showed no acute cardiopulmonary process. ASSESSMENT: 1. This 61-year-old gentleman has alcohol withdrawal symptoms. 2. Chronic alcoholism. 3. History of lymphoma. 4. Nausea and vomiting related to alcohol withdrawal. PLAN: 1. Admit. 2. CIWA protocol. 3. Diet as tolerated. 4. I gave him several brochures regarding local programs for him to peruse. GUILLAUME/OSMANI DR: Ruth TID: [id number]
--- NOTE | 2021-08-09 13:35 | EKG ---
[address] [address] Test Date: 2021-08-09 Test Time: 08:25:57 Pat Name: JONATHON BOGGS Department: Room: 124 A Gender: M [employer] Account [employer]: ROOM 124 : 1960 Requested By: YADIRA MIRAMONTES Order Number: [id number] Reading MD: Jori Wood MD Measurements Intervals [place] Rate: 103 P: 61 MI: 148 QRS: -29 QRSD: 108 T: 66 QT: 364 QTc: 479 Interpretive Statements SINUS TACHYCARDIA Electronically Signed On 08-15-2021 9:23:42 CDT by Joir Wood MD
[2021-08-09 14:46] VITALS: BP 153/90
[2021-08-09 19:25] VITALS: BP 173/97
--- NOTE | 2021-08-09 20:00 | NUR ---
Assessment completed. Cont. to have tremors. Ativan given IV for tremors et anxiety. Pt. c/o midsternal chest soreness that increases with movement, deep breath et palpation. Denies nausea. Pain does not radiate. HR Sinus tachycardia. Rate 110. Pt. states he has chronic inflammation r/t scar tissue from mediastanal surgery. Dr. Delgadillo notified of above. Orders recieved et noted.
[2021-08-09] MEDS ORDERED: methylPREDNISolone SOD SUCC PF 125 MG/2 ML VIAL. IV ONE (20:15)
[2021-08-09 23:00] VITALS: BP 167/101
[2021-08-10] MEDS ORDERED: KETOROLAC 30 MG/ML VIAL. IVP ONE (04:45)
--- NOTE | 2021-08-10 04:45 | NUR ---
Pt. cont. to rate pain at "7-8" on 1-[address] Delgadillo notified. Orders recieved et noted.
[2021-08-10 06:00] VITALS: BP 148/89
--- NOTE | 2021-08-10 06:01 | NUR ---
AM assessment complete. Pt. with eyes closed resp even et non-labored. Cont. to c/o substernal chest pain. Dose of Ativan given per pt, request. Rates pain at 4-5 currently. No changes from previous assessment.
[2021-08-10 07:09] LABS: BASO % 0 % (0-3); EOS % 0 % (0-3); HEMATOCRIT 36.8 % (39.0-53.0); HEMOGLOBIN 12.4 g/dL (13.0-17.5); LYMPH # 0.5 x10^3/uL (1.0-4.8); LYMPH % 8 % (24-48); MEAN CORPUSCULAR HEMOGLOBIN 31 pg (25-35); MEAN CORPUSCULAR HGB CONC 34 g/dL (31-37); MEAN CORPUSCULAR VOLUME 92 fL (79-100); MONO # 0.2 x10^3/uL (0.0-1.1); MONO % 3 % (0-9); NEUT % 89 % (31-73); PLATELET COUNT 336 x10^3/uL (140-400); WHITE BLOOD COUNT 6.7 x10^3/uL (4.0-11.0)
[2021-08-10 08:35] LABS: CREATININE 0.8 mg/dL (0.7-1.3); GFR 98.6; MAGNESIUM 1.5 mg/dL (1.8-2.4)
[2021-08-10] MEDS ORDERED: MAGNESIUM SULFATE 2GM 50 ML IV SCH (09:00)
[2021-08-10 11:24] VITALS: BP 143/83
[2021-08-10] MEDS ORDERED: LORA-254 PO (13:35)
[2021-08-10] MEDS ORDERED: MAGN400T44 PO (13:47)
[2021-08-10 15:18] VITALS: BP 164/75
--- NOTE | 2021-08-10 16:20 | NUR ---
Discharge Note Patient discharged home at this time via cab. All belongings taken out of room by patient. VSS @ time of discharge. Patient verbalized understanding of discharge instructions.
--- NOTE | 2021-08-11 09:54 | DS ---
DATE OF DISCHARGE: 08/10/2021 HOSPITAL COURSE: The patient is a 61-year-old male patient who was admitted through the Emergency Room with chief complaint of withdrawal. He is known to have alcohol dependence and was seen in the Emergency Department earlier in the day of admission and sent home with some Librium. He stated that he did take it, but it did not help. States that his last drink was the night before. He denied any recent travel, trauma, illness, fever, chest pain, shortness of breath. He stated he had some nausea, has not eaten or drank anything the day of admission, he was extensively investigated and was admitted with alcohol withdrawal and hypomagnesemia. He was treated with lorazepam and his magnesium was replenished. In fact, his magnesium was 1 and when I saw him today, he did not offer any complaint and stated that he is feeling generally well, he was eating and drinking. Has no tremors. PHYSICAL EXAMINATION: GENERAL: When I examined him, he looked well and was clearly in no apparent respiratory distress. No pallor, jaundice, cyanosis or thyromegaly. No jugular venous distention. No lower limb edema. VITAL SIGNS: His heart rate was 109, blood pressure is 143/83, temperature was 97.8, respiratory rate 20, and oxygen saturation was 97% on room air. Rest of clinical exam stable. LABORATORY DATA: This morning showed a white cell count of 6.7, hemoglobin 12, hematocrit 36, MCV 92 and platelet count 336,000. His chemistry showed a serum sodium 136, potassium 4, chloride 99, bicarbonate 28, anion gap of 9, BUN 8, creatinine 0.8. Estimated GFR was 98 mL per minute as glucose was 197, calcium was 8 and magnesium was 1.5. His troponin was 16. DISCHARGE MEDICATIONS: He was discharged home to continue on lorazepam, Ativan 1 mg 3 times a day for 7 days. He apparently follows with psychiatrist and he is already on Cymbalta for his anxiety. 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 I explained to him that the disorientation is only when he drinks alcohol, not with touching it, but he refused that. FINAL DISCHARGE DIAGNOSES: Alcohol dependence, alcoholism and hypomagnesemia. ALIDA/OSMANI/ERIKA DR: Elina TID: [id number]
== END 2021-08-10 16:21 | disposition home or self-care (01) | DRG 897 ==
LOC: ER 18:21 → ER HOLD 20:58 → 1 SOUTH 21:23
PROVIDERS: ADMIT Hospitalist; ATTEND Hospitalist
DX: F10.231 Alcohol dependence with withdrawal delirium (principal); R65.10 Systemic inflammatory response syndrome (SIRS) of non-infectious origin without acute organ dysfunction; E83.42 Hypomagnesemia; F41.1 Generalized anxiety disorder; Z85.71 Personal history of Hodgkin lymphoma; F32.A Depression, unspecified; F41.9 Anxiety disorder, unspecified; M19.90 Unspecified osteoarthritis, unspecified site; Z88.8 Allergy status to other drugs, medicaments and biological substances
CPT/HCPCS: 36415; 80048; 80053; 82947; 83690; 83735; 84484; 85025; 93005; 96361; 96365; 96366; 96372; 96375; J1885; J2060; J2405; J2560; J2930; J3475; J7120; 99285-25